=== PATIENT | female | born 1975 | race Caucasian/White ===

== ENCOUNTER → 2017-05-01 11:06 | Outpatient (CLI) | payer OTHER, SELFPAY ==
--- NOTE | 2017-05-01 11:10 | XR_ITS ---
XR hand RT min 3V COMPARISON: None HISTORY: Suspected bone cyst TECHNIQUE: AP lateral and oblique views FINDINGS: The distal radius and ulna appear intact. The carpal bones are normal. The metacarpals and phalanges all appear normal. The soft tissues are normal. IMPRESSION: Negative right hip
--- NOTE | 2017-05-01 11:37 | XR_ITS ---
XR chest 2V INDICATION: No history provided COMPARISON: PA and lateral chest 05/26/2016 FINDINGS: The lung morris are well expanded and appear clear of infiltrate. The cardiomediastinal silhouette and vascularity are normal. The costophrenic angles are clear. The bony thorax is normal. IMPRESSION: Normal chest.
== END ==
PROVIDERS: PCP Emergency Medicine; Visit Provider Orthopaedic Surgery
DX: L72.9 Follicular cyst of the skin and subcutaneous tissue, unspecified (principal); R06.02 Shortness of breath
CPT/HCPCS: 71046; 73130

== ENCOUNTER → 2017-05-04 13:21 | Outpatient (POV) | payer OTHER, SELFPAY | PROVIDERS: Family Provider Physician Assistant; PCP Emergency Medicine; Visit Provider Internal Medicine | DX: Z00.00 Encounter for general adult medical examination without abnormal findings (principal) ==

== ENCOUNTER → 2017-07-05 08:29 | Outpatient (CLI) | payer OTHER, SELFPAY ==
--- NOTE | 2017-07-05 08:31 | MM_ITS ---
MM Dig screening mamm BI w/CAD CAD Screening ORDERING PHYSICIAN : ANDREW Taylor PATIENT AGE: 41 years GENDER: Female COMPARISON: Previous mammograms: April, 2015, December 2013July 2009 utilized INDICATION: Screening mammogram. Female hormones last year. Previous needle biopsy stereotactic biopsy as well as excisional biopsy left breast. Benign results.. Family history. Maternal sister, cousin, aunts & grandmother TECHNIQUE: Standard CC and MLO images were obtained. R2 CAD reviewed. FINDINGS: Dense inhomogeneous breast pattern bilaterally again encountered. The dense inhomogeneous character there is decreased sensitivity mammography and may obscure abnormalities . If any palpable areas arise low threshold for ultrasound be appropriate in this breast given its architecture and appearance. LEFT BREAST:Metallic MicroMark or at the central left breast at the site of previous percutaneous biopsy.. A few grouping of a tiny calcification seen at the deep upper outer quadrant left breast best seen on MLO view but also axillary cc view. These are labeled X.. These are seen on the 2017 exam with only slight progression in interval Suggest 6- 7 month follow-up of these most likely benign calcifications to further evaluate. RIGHT BREAST:No definitive new findings Area of relative focal density at the far deep lateral breast on today's axillary cc view seems to dissipate on other views and most likely a summation shadow.Somewhat similar appearance, dates back to at least 2015, however when patient return in 6 months is suggested repeat axillary cc view and MLO view as well IMPRESSION: . 1. Left Breast: small loose grouping very tiny calcifications at the deep axillary tail.. Barely evident. Favor benign but Very slightly more evident since last year... Would benefit from Follow-up in 6 months to confirm stability and reevaluation 2 Right Breast: no prominent findings.. But note Area of slightly greater density at the deep axillary tail on cc view which appears to be summation shadow on today's study,. Thus would suggest including axillary cc view and MLO right breast when patient returns in 6- 7 months as well 3 Dense inhomogeneous asymmetric breast again observed.. Mammography is decreased sensitivity in breast of this dense character particularly within the areas of denser breast tissueSelf breast examination encouraged If any area palpable arises follow-up ultrasoundwould be useful to compliment mammography particularly in breast of this increased density BI-RADS Category: 3 Benign Finding Short Term Follow-up RECOMMENDED FOLLOW-UP: 6M - 7 MONTH FOLLOW-UP Additional imaging at 6-7 month to included: Left breast: routine MLO and cc view; with magnification spot views cc & 90 degree of tiny calcifications at labeled X Right breast: axillary cc, and standard full MLO view at that 6- 7 month follow-up as well (A letter has been sent to the patient regarding results of the study.)
== END ==
PROVIDERS: Family Provider Physician Assistant; PCP Emergency Medicine; Visit Provider Physician Assistant
DX: Z12.31 Encounter for screening mammogram for malignant neoplasm of breast (principal)
CPT/HCPCS: 77067

== ENCOUNTER → 2017-07-22 15:28 | Outpatient (CLI) | payer OTHER, SELFPAY ==
--- NOTE | 2017-07-22 15:31 | US_ITS ---
US breast LT complete Ordering Physician: Bruce Ovalle MD Patient Age: 41 years: Female HISTORY: ITS.REASON: Abnormal Mammogram Fibrocystic breast disease. Had surgery 2009. TECHNIQUE: Ultrasound survey entire left breast & including axillary survey COMPARISON :Ultrasound left breast 05/07/2015 and recent mammogram. FINDINGS ...... Discussed the images with the aeronautical engineering technologist . 1:00 Palpable area was a 1:00 . At the palpable region there is only a small cyst identified.. No solid nodule. Moderate fibroglandular tissue in this region.. This small cyst at 1:00 measuring merely 5.2 mm transverse X 4.6 mm length x 1.6 mm AP. The moderate fibroglandular tissues are seen otherwise noted throughout this area could contribute to the the palpable fullness as well.. 9:00. 2 cysts at Central breast behind nipple: .Cyst#1 measuring 8.7 mm x 7.7 mm x 5.6 mm .Cyst#2. Measures 8.7 mm x 9.7 mm x 6.8 mm 2:00.... 1 cm cyst central breast IMPRESSION: ...... 1. Fibrocystic left breast again encountered Scattered small cysts throughout left breast as detailed in text 2. The palpable area at 1:00 shows no suspicious findings by ultrasound. No solid nodule. Only a moderate fibroglandular tissue along with a small cyst seen at this 1:00 region 3. Consider follow-up left mammogram and ultrasound in 6months if palpable area should persist . ( If this palpable area should progress then repeat evaluation/and shorter interval follow-up may be appropriate.) CAD. BI-RADS Category: 3 Benign Finding Short Term Follow-up RECOMMENDED FOLLOW-UP: 6M - 6 MONTH FOLLOW-UP (A letter has been sent to the patient regarding results of the study.)
== END ==
PROVIDERS: Family Provider Physician Assistant; PCP Emergency Medicine; Visit Provider Emergency Medicine
DX: R92.8 Other abnormal and inconclusive findings on diagnostic imaging of breast (principal)
CPT/HCPCS: 76641

== ENCOUNTER → 2018-01-17 12:53 | Outpatient (CLI) | payer OTHER, SELFPAY ==
--- NOTE | 2018-01-17 | US_ITS ---
MM Dig mamm BI DX w/CAD, US breast LT complete, US breast RT complete INDICATION: Follow-up abnormal mammogram ORDERING PHYSICIAN: Bruce Ovalle MD PATIENT AGE: 42 years COMPARISON: 07/05/2017, 314 and 17, 05/07/2015, 04/29/2015 TECHNIQUE: Standard images performed along with mag views and spot compression views as well as bilateral breast ultrasound FINDINGS: There is dense fibroglandular tissue which decreases the sensitivity of mammography. Please correlate with physical exam. Right breast: Small cluster of calcifications noted in the medial aspect of the right breast do not appear significantly changed. These have a somewhat smudgy appearance probably benign. Asymmetric density is noted in the deep medial aspect of the right breast appears to partially efface on the spot compression view. This has somewhat similar appearance dating back to 04/29/2015. Scattered asymmetric areas of increased density are present involving both breasts. Asymmetric density is present near on the spot compression view slightly medial to midline seen only on the CC view measuring 10 mm. Benign-appearing nodular densities present in the axilla consistent with lymph nodes. Right breast ultrasound: 4 mm x 5 mm hypoechoic nodule at 12:00 probably due to small cyst. Hypoechoic 8 x 6 mm nodule at 12:00 near the nipple. This does appear to contain some internal echoes and does not appear to represent simple cyst possibly due to asymmetric fibrocystic changes. Hypoechoic area at 3:00 similar to the previous ultrasound of 05/07/1959 probably related to fibroglandular tissue. 5 mm cyst at 1:00. 9 mm complex cyst at 6:00. 7 mm cyst at 9:00. 10 mm cyst complex at 10:00. 5 mm isoechoic nodule containing multiple small cysts at 6:00. Left breast: Dense fibroglandular tissue. Biopsy clip is present in the retroareolar region. Calcifications in the upper aspect of the left breast not significantly changed from 07/05/2017. Probably benign. Small cluster calcifications noted in the retroareolar region which appear benign. Asymmetric density is present in the medial aspect of the left breast. Severe to compress out on the spot compression view. Left breast ultrasound: There are multiple left breast cysts including a 6 mm cyst at 12:00, another 6 mm cyst at 12:00, 6 mm cyst at 1:00, 4 mm cyst at 2:00, complex 1 cm cyst at 2:00, 3 mm cyst at 9:00, 8 mm cyst at 10:00, 6 mm complex cyst in the retroareolar region, no suspicious sonographic nodules evident. IMPRESSION: 1. Probably benign calcifications in the upper outer aspect of the left breast and lower inner aspect of the right breast. 2. New hypoechoic area in the retroareolar region of the right breast possibly due to asymmetric fibroglandular tissue at 8 x 6 mm 12:00 near the nipple 3. Multiple bilateral breast cysts. 4. Dense fibroglandular tissue decrease in the sensitivity of mammography. Suggest follow-up right breast ultrasound and mag views of the calcifications of both breasts in 3-4 months BI-RADS Category: 3 Probably Benign Finding Short Term Follow-up RECOMMENDED FOLLOW-UP: 3M - 3 MONTH FOLLOWUP (A letter has been sent to the patient regarding results of the study.)
== END ==
PROVIDERS: PCP Emergency Medicine; Visit Provider Emergency Medicine
DX: R92.8 Other abnormal and inconclusive findings on diagnostic imaging of breast (principal)
CPT/HCPCS: 76641; 77066

== ENCOUNTER → 2018-04-25 13:41 | Outpatient (CLI) | payer OTHER, SELFPAY ==
--- NOTE | 2018-04-25 13:53 | MM_ITS ---
MM Dig mamm BI DX w/CAD, US breast RT complete Ordering Physician: Bruce Ovalle MD Patient Age: 42 years Female COMPARISON: Previous mammogram studies January 17, 2018, June Previous bilateral ultrasound January 2018, May 2015 INDICATION: Follow-up nodularity & calcifications BILATERAL DIAGNOSTIC MAMMOGRAM with additional spot views TECHNIQUE: MLO & cc & axillary cc view both breast with additional CC and 90 degree magnification spot views bilaterally for calcifications. FINDINGS: : Difficult to evaluate breast due to the Dense nodular character bilaterally. RIGHT BREAST: The overall parenchymal pattern of the right breast appears similar we do see areas of subtle round densities which are compatible with numerous small cyst is seen on subsequent ultrasound. . *There is a small cluster variable microcalcifications at the deep medial right breast-area labeled A. Recommend stereotactic biopsy to further evaluate this area since it shows slight progression with some additional small variable forms today.. This feature is Located at the inferior medial right breast & fairly deep but I believe we should be able to target with stereotactic.. Other small calcifications in the right breast are scattered and compatible with adenosis LEFT BREAST again the dense nodular pattern observed with fairly stable parenchymal pattern. There is a loose grouping of calcifications in the deep upper outer quadrant of the left breast. Labeled X These were seen previously and have not changed significantly since prior study 2018. They've become slightly denser since 2017 but not significantly increased in number and what appears to fairly benign morphology. I suggest a follow-up left mammogram 6-8 months to further evaluate these this area. There is also another area of calcifications which but can be followed. Labeled Y there are some Layering calcifications which may reflect milk of calcium seen in this grouping. Previous biopsy with metallic marker at the central left breast again noted. RIGHT BREAST ULTRASOUND. Including Axillary Survey. Images entire breast was performed including axillary survey of lymph nodes. I see no significant suspicious areas with ultrasound. No new findings of significant concern on ultrasound. Scattered cysts and debris-filled appearing cyst throughout the right breast are again observed:. 12:00. There is a 4.5 mm debris-filled cyst mid zone breast. 12:00 central breast 5.2 cm cyst. Deep breast. 12:00 deep breast adjacent chest wall. Near 1 cm length or debris-filled cyst. There is through transmission more so today than previous study and is not changed significantly size when measured from similar points; thus follow-up adequate. 1:00. There is 8 mm small cystic behind nipple central breast. 3:00. Slightly debris-filled cyst. 6.5 mm deep to the Nipple [. 6:00 collection of cyst overall this area spans a 9 mm x 6 mm.. Deep to the nipple Some of these cyst debris-filled. On this would benefit from ongoing follow-up is similar to previous studies only slightly more apparent. 6:00 deep breast towards chest wall collection of cyst of these benign 0.1 mm. Stable. Not of concern 7:00. Flexion assisted breast spanning just over 1 cm 9:00. Debris-filled cyst 6.2 mm length 10:00 7 mm debris-filled cyst. Period 11:00 is a probable debris-filled cyst or chest wall 6.3 mm length. Scattered small axillary lymph nodes, benign appearance. No suspicious findings. The largest node 1.55 cm in length. IMPRESSION 1. RIGHT BREAST. DIAGNOSTIC MAMMOGRAM Small cluster of microcalcifications deep medial inferior which has shown subtle progression with slight variable forms. Warrants Stereotactic Biop
== END ==
PROVIDERS: PCP Emergency Medicine; Visit Provider Emergency Medicine
DX: R92.8 Other abnormal and inconclusive findings on diagnostic imaging of breast (principal)
CPT/HCPCS: 76641; 77066

== ENCOUNTER → 2018-04-27 11:45 | Outpatient (CLI) | payer OTHER, SELFPAY ==
--- NOTE | 2018-04-27 12:24 | MM_ITS ---
MM stereotactic loc RT, MM clip placement RT STEREOTACTIC BIOPSY RIGHT BREAST with CLIP PLACEMENT SPECIMEN RADIOGRAPH DIAGNOSTIC RIGHT MAMMOGRAM POST BIOPSY HISTORY: Cluster Breast calcifications medial inferior right breast, slightly more evident . ======= PROCEDURE: STEREOTACTIC VACUUM-ASSISTED CORE BX, W/ CLIP PLACEMENT: Prior t mammogram showed showedMicrocalcifications at inferior medial right breast position .. The patient declined premedications. The patient was placed on the stereotactic table and cluster of calcifications was localized in the most appropriate projection. The breast was prepped in the routine manner, with sterile prep and the overlying skin anesthetized. A very small and 2 -3 mm skin incision was performed and the 9 gauge Eviva vacuum-assisted core biopsy needle was advanced to the region of the calcification. Pre- and post fire images were obtained. After adequate positioning relative to the calcifications was ensured, multiple biopsies were obtained in the region of the calcifications specifically. The multiple core biopsies obtained were sent for specimen mammography. After the cluster calcifications were indeed identified on the specimen mammogram, the procedure was terminated. A tiny titanium nonferromagnetic MicroMark was positioned through the mammotome needle into the biopsy site . The patient tolerated the procedure well without complications.. Minimal discomfort but she received no premedication. Specimen was sent for pathologic analysis.. Routine follow-up phone call to patient is to be performed as well. IMPRESSION 1. Successful stereotactic vacuum-assisted core biopsy, with adequate sampling & removal) of the small area of targeted clustered calcifications. The calcifications are evident on the subsequent specimen radiograph Successful stereotactic vacuum-assisted core biopsy of these breast calcifications. 2. Successful placement of a titanium metal MicroMark. 3. No evidence complications. SPECIMEN RADIOGRAPH: The mammographically evident calcifications from the prior study are currently evident within the Marv dish and within the specimens obtained during mammotome procedure. This is considered an adequate specimen and the procedure was terminated. IMPRESSION:Successful removal of described breast calcifications.Successful stereotactic biopsy RIGHT BREAST DIAGNOSTIC MAMMOGRAM - post biopsy Moderately dense breast.. The targeted clustered grouping small calcification as been removed. A small MicroMark clip was inserted into the region of the calcifications. There is evidence of soft tissue changes in the region of the biopsy was soft tissue gas. No significant hematoma, and only minimal edema. Moderate size biopsy defect. With metallic marker IMPRESSION: 1. Successful stereotactic biopsy with clip placement 2. Adequate placement of the MicroMark clip postbiopsy. . Postbiopsy changes evident on postbiopsy mammogram. PATHOLOGY report:. Benign findings. . Benign proliferative fibrocystic changes with benign stromal microcalcifications.
== END ==
PROVIDERS: PCP Emergency Medicine; Visit Provider Emergency Medicine
DX: R92.8 Other abnormal and inconclusive findings on diagnostic imaging of breast (principal)
CPT/HCPCS: 19081; 77065

== ENCOUNTER → 2018-05-11 09:01 | Outpatient (CLI) | payer OTHER, SELFPAY ==
[2018-05-11 09:22] LABS: Basophils % 0.6 % (0.1-2.0); Eosinophils # 0.1 K/mm3 (0.0-0.4); Eosinophils % 1.9 % (0.1-12.0); Hematocrit 41.8 % (37.0-47.0); Hemoglobin 14.1 g/dL (12.2-16.2); Lymphocytes # 1.8 K/mm3 (0.7-4.5); Lymphocytes % 34.6 % (10-50); Mean Corpuscular HGB Conc 33.7 g/dL (31.8-35.4); Mean Corpuscular Hemoglobin 31.1 pg (27.0-31.2); Mean Corpuscular Volume 92.1 fl (81-99); Mean Platelet Volume 7.4 fl (7.4-10.4); Monocytes # 0.2 K/mm3 (0.1-1.0); Monocytes % 3.9 % (1.7-9.3); Neutrophils # 3.1 K/mm3 (1.8-7.8); Platelet Count 328 K/mm3 (142-424); Red Blood Count 4.54 M/mm3 (4.20-5.40); Red Cell Distribution Width 12.6 % (11.5-17.5); White Blood Count 5.2 K/mm3 (4.8-10.8)
[2018-05-11 09:24] LABS: Anion Gap 14.5 mEq/L (5-15); Blood Urea Nitrogen 11 mg/dL (7-18); Calcium 9.3 mg/dL (8.5-10.1); Carbon Dioxide 27 mmol/L (21.0-32.0); Chloride 103 mmol/L (98-107); Creatinine,Serum 0.98 mg/dL (0.55-1.02); Estimated Glomerular Filt Rate 62 ml/min (>60); GFR (African American) 75 ML/MIN (>60); Glucose 85 mg/dL (74-106); Potassium 3.5 mmoL/L (3.5-5.1); Sodium 141 mmol/L (136-145)
[2018-05-11 11:34] LABS: Activated Partial Thrombo Time 24.5 seconds (23.6-34.0); INR 0.95 (0.9-1.1); Prothrombin Time 9.8 seconds (9.4-11.8)
== END ==
PROVIDERS: Visit Provider Specialist
DX: Z01.812 Encounter for preprocedural laboratory examination (principal); I10 Essential (primary) hypertension
CPT/HCPCS: 80048; 85025; 85610; 85730

== ENCOUNTER → 2018-10-26 18:16 | Outpatient (CLI) | payer OTHER, SELFPAY | PROVIDERS: Visit Provider Physician Assistant | DX: N23 Unspecified renal colic (principal) | CPT/HCPCS: 87086; 87088; 87186 ==

== ENCOUNTER → 2018-11-14 13:52 | Outpatient (CLI) | payer OTHER, SELFPAY ==
--- NOTE | 2018-11-14 13:55 | MM_ITS ---
PROCEDURE: MM DIG MAMM BI DX W/CAD Patient Age:43Y CLINICAL INDICATION: 6 mth f/u stereotactic biopsy of right is six-month follow-up for calcifications. . Fibrocystic breast disease with bilateral previous biopsies. Percutaneous COMPARISON: DIG MAMM-DX UNILATERAL-LT from 06/27/2013 [facility] DIG MAMM-SCREEN YARA from 12/29/2013 [facility] DIG MAMM-SCREEN YARA from 04/29/2015 [facility] DIG MAMM-DX YARA W ADD VIEWS from 05/07/2015 BL US BREAST-LT COMPLETE W/AXILLA from 05/07/2015 [facility] DIG MAMM-DX UNI-LT from 05/15/2015 [facility] DIG MAMM-SCREEN YARA W/CAD from 05/19/2016 [facility] MM Dig screening mamm BI w/CAD from 07/05/2017 BREASTLT US breast LT complete from 01/17/2018 [facility] MM Dig mamm BI DX w/CAD from 01/17/2018 BREASTRT US breast RT complete from 01/17/2018 BREASTRT US breast RT complete from 04/25/2018 [facility] MM Dig mamm BI DX w/CAD from 04/25/2018 STRT MM stereotactic loc RT from 04/27/2018 CLIPRT MM clip placement RT from 04/27/2018 US BREAST RT COMPLETE from 11/14/2018 US BREAST LT COMPLETE from 11/14/2018 TECHNIQUE: CC and MLO images were obtained bilateral. R2 CAD reviewed.. Additional magnification views calcifications superior left breast included FINDINGS: BILATERAL DIAGNOSTIC MAMMOGRAM, including spot views left breast Dense breast pattern bilaterally decrease sensitivity in mammography Right mammogram.: Similar stable heterogeneous architecture and appearance. With no new areas of significant concern . Percutaneous biopsy marker at the medial inferior right breast again noted. Left mammogram:: We again see 3 small groupings of tiny calcifications upper-outer quadrant left breast which overall fairly stable. The area labeled X. is most notable-in the deep axillary tail left breast and appears similar since 2017 and 2007 left ML view. No significant appearing change. Given its deep location and previous benign biopsies of the follow-up would be adequate. Area labeled Y: With the small linear possible milk of calcium type calcifications again noted. This area reasonably stable as well. Area labeled Z: Between these areas on today's 90 degree mL view with scattered extremely tiny faint calcifications. But most likely reflect benign adenosis and can be followed There is a small metal marker clip the central breast from previous percutaneous biopsy. BILATERAL BREAST ULTRASOUND including axillary survey RIGHT BREAST ULTRASOUND: Scattered cysts throughout the right breast are again observed. Most notable include: 12 o'clock 5 mm debris-filled cyst. Deeper 12 o'clock central breast 9 mm cyst 2 o'clock. Septated 5.6mm cyst. 5 o'clock. Septated small cyst 6 o'clock. A more complex of collection of small apocrine cyst spanning 8.6 mm vs a small benign intramammary lymph node. Numerous other less than 6 mm cyst elsewhere. 11 o'clock. 9.5 mm cyst septated. Benign appearing axillary node. . no discrete suspicious solid nodules or masses LEFT BREAST ULTRASOUND: Scattered cyst throughout left breast. Most notable: 11 o'clock 1.2 cm cyst benign-appearing 3 o'clock: 1 cm benign septated cyst . Scattered other small cyst measuring less than 6 mm seen elsewhere scattered throughout the breast Axilla.. Benign axillary lymph nodes with thin cortex similar to previous studies IMPRESSION: BILATERAL MAMMOGRAM: Dense breast bilaterally significant decreased sensitivity but no unique discrete new areas of concern Left mammogram: Small area/groupings calcification upper outer quadrant of the left breast have not changed appreciably since studies dating back to 2017, but suggest follow-up 6-8 months.. Right mammogram: No significant new areas of concern. Overall stable dense appearance. BILATERAL BREAST
== END ==
PROVIDERS: PCP Emergency Medicine; Visit Provider Emergency Medicine
DX: R92.8 Other abnormal and inconclusive findings on diagnostic imaging of breast (principal)
CPT/HCPCS: 76641; 77066

== ENCOUNTER → 2018-12-09 11:05 | Outpatient (CLI) | payer OTHER, SELFPAY ==
--- NOTE | 2018-12-09 11:17 | MR_ITS ---
PROCEDURE: MR HEAD/BRAIN WO CON CLINICAL INDICATION: vision loss COMPARISON: No exams were available for comparison TECHNIQUE: Routine multi-echo and multiplanar images. This included diffusion images. FINDINGS: There are no areas of restricted diffusion. There is no mass, acute hemorrhage or extra axial fluid collection. Ventricles, sulci, cortical areas and brainstem structures are normal. The visual pathway structures are unremarkable. There are a few punctate round foci of slight increased FLAIR signal in the subcortical frontal lobe areas bilaterally and a few also in the posterior parietal areas. Visualized vessels are patent and the area of the foramen magnum is normal. Paranasal sinuses and mastoid air cells are clear. IMPRESSION: No acute process and no acute infarctions. White matter findings are very mild and could be from mild chronic small vessel ischemic disease or sequela of migraine headaches. Dictated by: Asim Iqbal 12/09/2018 13:31 Electronically signed by Asim Iqbal in [place] 12/09/2018 13:31
== END ==
PROVIDERS: PCP Emergency Medicine; Visit Provider Emergency Medicine
DX: H53.122 Transient visual loss, left eye (principal); H04.123 Dry eye syndrome of bilateral lacrimal glands; R68.2 Dry mouth, unspecified; R20.0 Anesthesia of skin
CPT/HCPCS: 70551

== ENCOUNTER → 2019-05-01 11:25 | Outpatient (CLI) | payer OTHER, SELFPAY ==
--- NOTE | 2019-05-01 11:30 | US_ITS ---
PROCEDURE: US ABDOMEN COMPLETE CLINICAL INDICATION: pain, n/v COMPARISON: No exams were available for comparison FINDINGS: PANCREAS: Unremarkable. No obvious mass or abnormal fluid collection. No ductal dilatation LIVER: No focal liver lesions demonstrated. Homogeneous echogenicity. No intrahepatic biliary ductal dilatation evident. There is appropriate direction of blood flow within a non dilated portal vein RIGHT KIDNEY: Unremarkable. Normal size and echogenicity. No hydronephrosis LEFT KIDNEY: Unremarkable. Normal size and echogenicity. No hydronephrosis GALLBLADDER: No gallstones, gallbladder wall thickening, pericholecystic fluid, or biliary dilatation. AORTA: No evidence of aneurysmal dilatation. SPLEEN: Unremarkable. Normal size and echogenicity ASCITES: None demonstrated. IMPRESSION: Negative abdominal ultrasound Dictated by: Juan Luis Maldonado MD 05/01/2019 18:30 Electronically signed by Juan Luis Maldonado MD in [place] 05/01/2019 18:30
== END ==
PROVIDERS: PCP Emergency Medicine; Visit Provider Emergency Medicine
DX: R10.9 Unspecified abdominal pain (principal)
CPT/HCPCS: 76700

== ENCOUNTER → 2019-05-15 18:09 | Outpatient (CLI) | payer OTHER, SELFPAY ==
[2019-05-15 18:39] LABS: Adenovirus,PCR Not Detected (NotDetected); Bordetella Pertussis Not Detected (NotDetected); Chlamydophila Pneumoniae, PCR Not Detected (NotDetected); Coronavirus 229E Not Detected (NotDetected); Coronavirus NL63 Not Detected (NotDetected); Coronavirus OC43 Not Detected (NotDetected); Coronovirus HKU1,PCR Not Detected (NotDetected); Human Metapneumovirus Not Detected (NotDetected); Influenza A, PCR Not Detected (NotDetected); Influenza AH1, 2009 Not Detected (NotDetected); Influenza AH1, PCR Not Detected (NotDetected); Influenza AH3,PCR Not Detected (NotDetected); Influenza B, PCR Not Detected (NotDetected); Mycoplasma Pneumoniae, PCR Not Detected (NotDetected); Parainfluenza 1, PCR Not Detected (NotDetected); Parainfluenza 2, PCR Not Detected (NotDetected); Parainfluenza 3, PCR Not Detected (NotDetected); Parainfluenza 4, PCR Not Detected (NotDetected); Respiratory Syncytial Virus Not Detected (NotDetected); Rhinovirus/Enterovirus Not Detected (NotDetected)
== END ==
PROVIDERS: PCP Emergency Medicine; Visit Provider Emergency Medicine
DX: R50.9 Fever, unspecified (principal)
CPT/HCPCS: 87486; 87581; 87633; 87798

== ENCOUNTER → 2019-06-20 13:31 | Outpatient (CLI) | payer OTHER, SELFPAY ==
--- NOTE | 2019-06-20 13:35 | US_ITS ---
PROCEDURE: MM DIG MAMM BI DX W/CAD Digital Breast Tomosynthesis Included CLINICAL INDICATION: 6 mth f/u Follow-up abnormal mammogram, COMPARISON: [facility] DIG MAMM-DX UNI-LT from 05/15/2015 [facility] DIG MAMM-SCREEN YARA W/CAD from 05/19/2016 [facility] MM Dig screening mamm BI w/CAD from 07/05/2017 [facility] MM Dig mamm BI DX w/CAD from 01/17/2018 CLIPRT MM clip placement RT from 04/27/2018 STRT MM stereotactic loc RT from 04/27/2018 US BREAST LT COMPLETE from 11/14/2018 MM DIG MAMM BI DX W/CAD from 11/14/2018 US BREAST RT COMPLETE from 11/14/2018 US BREAST RT COMPLETE from 06/20/2019 US BREAST LT COMPLETE from 06/20/2019 TECHNIQUE: Standard images along with bilateral 3D tomosynthesis and bilateral breast ultrasound FINDINGS: Average fibroglandular tissue. Scattered benign-appearing calcifications and benign-appearing nodular densities are once again noted. Biopsy clip is present along the lower inner aspect of the right breast. A stable cluster of calcifications noted in the upper aspect of the left breast. A clip is also present in the medial aspect of the left breast. Right breast ultrasound: Hypoechoic nodule at 12 o'clock at 5 mm near the nipple unchanged. 5 mm cyst at 12 o'clock near the nipple. 7 mm hypoechoic nodule deep in the right breast at 12 o'clock near the nipple unchanged. 6 mm cyst at 2 o'clock. Complicated cyst at 5 o'clock at 5 mm, complicated lobular cyst at 6 o'clock at 7 mm, hypoechoic nodule at 8 o'clock at 7 mm unchanged. 5 mm cyst at 9 o'clock, bilobular 9 mm cyst at 11 o'clock. Septated 8 mm cyst at 11 o'clock. No new nodules. No suspicious lesions. Left breast ultrasound: 8 mm cyst at 12 o'clock, 10 mm complicated cyst at 12 o'clock, 8 mm complicated cyst at 1 o'clock, 7 mm complicated cyst at 3 o'clock, 9 mm complicated cyst at 3 o'clock, 5 mm cyst at 3 o'clock, ductal ectasia, 6 mm complicated cyst at 9 o'clock, 13 and 10 mm cyst at 11 o'clock. These may actually represent a bilobed single cyst. No suspicious lesions IMPRESSION: Stable appearance of the breast. No convincing evidence of malignancy. BI-RAD Category: 2 Benign Finding(s) FOLLOW-UP: 1YR 1 Year Follow-up (A letter has been sent to the patient regarding results of the study.) Dictated by: Juan Luis Maldonado MD 06/26/2019 10:20 Electronically signed by Juan Luis Maldonado MD in [place] 06/26/2019 10:20
== END ==
PROVIDERS: PCP Emergency Medicine; Visit Provider Emergency Medicine
DX: R92.8 Other abnormal and inconclusive findings on diagnostic imaging of breast (principal)
CPT/HCPCS: 76641; 77062; 77066; G0279

== ENCOUNTER → 2019-08-04 16:59 | Outpatient (CLI) | payer OTHER, SELFPAY ==
[2019-08-04 17:55] LABS: Coronavirus 19 IgG Antibody Negative (Negative); Coronavirus 19 IgM Antibody Negative (Negative)
== END ==
PROVIDERS: Visit Provider Emergency Medicine
DX: Z03.818 Encounter for observation for suspected exposure to other biological agents ruled out (principal)
CPT/HCPCS: 86328

== ENCOUNTER → 2019-09-05 10:41 | Outpatient (POV) | payer OTHER, SELFPAY | PROVIDERS: PCP Emergency Medicine; Visit Provider Physician Assistant | DX: Z00.00 Encounter for general adult medical examination without abnormal findings (principal) ==

== ENCOUNTER → 2019-10-16 20:12 | Outpatient (CLI) | payer OTHER, SELFPAY | PROVIDERS: PCP Emergency Medicine; Visit Provider Nurse Practitioner Family | DX: Z03.818 Encounter for observation for suspected exposure to other biological agents ruled out (principal) | CPT/HCPCS: U0003 ==

== ENCOUNTER → 2019-10-30 11:12 | Outpatient (CLI) | payer OTHER, SELFPAY ==
[2019-10-31 16:12] LABS: Covid-19 Nasal PCR Sendout Lex NOT DETECTED
== END ==
PROVIDERS: Visit Provider Internal Medicine Adolescent Medicine
DX: Z03.818 Encounter for observation for suspected exposure to other biological agents ruled out (principal)
CPT/HCPCS: U0004

== ENCOUNTER → 2019-12-29 18:01 | Outpatient (CLI) | payer OTHER, SELFPAY | PROVIDERS: PCP Physician Assistant; Visit Provider Physician Assistant | DX: Z03.818 Encounter for observation for suspected exposure to other biological agents ruled out (principal); R05 Cough; R51.9 Headache, unspecified | CPT/HCPCS: U0003 ==

== ENCOUNTER → 2020-01-28 12:22 | Outpatient (CLI) | payer OTHER, SELFPAY ==
[2020-01-28 12:28] LABS: Adenovirus,PCR Not Detected (NotDetected); Bordetella Pertussis Not Detected (NotDetected); Chlamydophila Pneumoniae, PCR Not Detected (NotDetected); Coronavirus 19, PCR Not Detected (NotDetected); Coronavirus 229E Not Detected (NotDetected); Coronavirus NL63 Not Detected (NotDetected); Coronavirus OC43 Not Detected (NotDetected); Coronovirus HKU1,PCR Not Detected (NotDetected); Human Metapneumovirus Not Detected (NotDetected); Influenza A, PCR Not Detected (NotDetected); Influenza AH1, 2009 Not Detected (NotDetected); Influenza AH1, PCR Not Detected (NotDetected); Influenza AH3,PCR Not Detected (NotDetected); Influenza B, PCR Not Detected (NotDetected); Mycoplasma Pneumoniae, PCR Not Detected (NotDetected); Parainfluenza 1, PCR Not Detected (NotDetected); Parainfluenza 2, PCR Not Detected (NotDetected); Parainfluenza 3, PCR Not Detected (NotDetected); Parainfluenza 4, PCR Not Detected (NotDetected); Respiratory Syncytial Virus Not Detected (NotDetected); Rhinovirus/Enterovirus Not Detected (NotDetected)
== END ==
LOC: LAB 12:25 → LAB.DROPOF 12:26
PROVIDERS: Visit Provider Nurse Practitioner Family
DX: Z03.818 Encounter for observation for suspected exposure to other biological agents ruled out (principal)
CPT/HCPCS: 87581; 87633; 87798; U0003

== ENCOUNTER → 2020-04-01 13:43 | Outpatient (CLI) | payer OTHER, SELFPAY ==
[2020-04-01 14:18] LABS: Adenovirus,PCR Not Detected (NotDetected); Bordetella Pertussis Not Detected (NotDetected); Chlamydophila Pneumoniae, PCR Not Detected (NotDetected); Coronavirus 19, PCR Not Detected (NotDetected); Coronavirus 229E Not Detected (NotDetected); Coronavirus NL63 Not Detected (NotDetected); Coronavirus OC43 Not Detected (NotDetected); Coronovirus HKU1,PCR Not Detected (NotDetected); Human Metapneumovirus Not Detected (NotDetected); Influenza A, PCR Not Detected (NotDetected); Influenza AH1, 2009 Not Detected (NotDetected); Influenza AH1, PCR Not Detected (NotDetected); Influenza AH3,PCR Not Detected (NotDetected); Influenza B, PCR Not Detected (NotDetected); Mycoplasma Pneumoniae, PCR Not Detected (NotDetected); Parainfluenza 1, PCR Not Detected (NotDetected); Parainfluenza 2, PCR Not Detected (NotDetected); Parainfluenza 3, PCR Not Detected (NotDetected); Parainfluenza 4, PCR Not Detected (NotDetected); Respiratory Syncytial Virus Not Detected (NotDetected); Rhinovirus/Enterovirus Not Detected (NotDetected)
== END ==
PROVIDERS: PCP Emergency Medicine; Visit Provider Family Medicine
DX: Z20.822 Contact with and (suspected) exposure to COVID-19 (principal)
CPT/HCPCS: 87581; 87633; 87798

== ENCOUNTER → 2020-07-01 11:21 | Outpatient (CLI) | payer OTHER, SELFPAY ==
[2020-07-01 11:35] LABS: Basophils # 0.1 K/mm3 (0-0.2); Basophils % 1.2 % (0.1-2.0); Eosinophils # 0.1 K/mm3 (0.0-0.4); Eosinophils % 1.9 % (0.1-12.0); Hematocrit 42.2 % (37.0-47.0); Hemoglobin 13.9 g/dL (12.2-16.2); Lymphocytes # 1.9 K/mm3 (0.7-4.5); Lymphocytes % 40.4 % (10-50); Mean Corpuscular HGB Conc 32.9 g/dL (31.8-35.4); Mean Corpuscular Hemoglobin 30.2 pg (27.0-31.2); Mean Corpuscular Volume 91.8 fl (81-99); Mean Platelet Volume 7.9 fl (7.4-10.4); Monocytes # 0.2 K/mm3 (0.1-1.0); Monocytes % 4.7 % (1.7-9.3); Neutrophils # 2.5 K/mm3 (1.8-7.8); Neutrophils % 51.8 % (37.0-80.0); Platelet Count 309 K/mm3 (142-424); Red Cell Distribution Width 12.7 % (11.5-17.5); White Blood Count 4.8 K/mm3 (4.8-10.8)
[2020-07-01 11:39] LABS: Chloride 104 mmol/L (98-107); Potassium 3.9 mmoL/L (3.5-5.1); Sodium 139 mmol/L (136-145)
[2020-07-01 11:41] LABS: Blood Urea Nitrogen 11 mg/dl (7-17); Estimated Glomerular Filt Rate 67 ml/min (>60); GFR (African American) 82 ML/MIN (>60)
[2020-07-01 11:42] LABS: Alanine Aminotransferase 14 U/L (12-78); Albumin Level 4.8 g/dl (3.5-5.0); Albumin/Globulin Ratio 1.6 (1.1-1.8); Alkaline Phosphatase 58 U/L (38-126); Anion Gap 12.9 mEq/L (5-15); Aspartate Amino Transferase 25 U/L (14-36); Bilirubin,Total 0.7 mg/dl (0.2-1.3); Carbon Dioxide 26 mmol/L (22.0-30.0); Cholesterol 203 mg/dl (140-200); Total Protein,Serum 7.8 g/dl (6.3-8.2); Triglycerides 68 mg/dl (30-150); VLDL Cholesterol 14 mg/dL (0-40)
[2020-07-01 11:43] LABS: Calcium 9.8 mg/dl (8.4-10.2); Chol/HDL Ratio 3.3 (1-3.5); Glucose 94 mg/dl (74-100); HDL Cholesterol 62 mg/dl (40-60)
[2020-07-01 11:54] LABS: Direct LDL Cholesterol 104.89 mg/dL (100-129)
[2020-07-01 12:13] LABS: Thyroid Stimulating Hormone 1.93 uIU/mL (0.465-4.68)
[2020-07-01 16:41] LABS: Hemoglobin A1C 5.2 % (4.0-6.0)
== END ==
PROVIDERS: Visit Provider Family Medicine
DX: Z00.00 Encounter for general adult medical examination without abnormal findings (principal); R73.09 Other abnormal glucose
CPT/HCPCS: 80053; 80061; 83036; 84436; 84443; 85025

== ENCOUNTER → 2020-07-08 13:31 | Outpatient (CLI) | payer OTHER, SELFPAY ==
--- NOTE | 2020-07-08 13:37 | US_ITS ---
PROCEDURE: MM DIG MAMM BI DX W/CAD Digital Breast Tomosynthesis Included CLINICAL INDICATION: screening COMPARISON: MG CLIPRT MM clip placement RT from 04/27/2018 MG,US STRT MM stereotactic loc RT from 04/27/2018 MG MM DIG MAMM BI DX W/CAD from 11/14/2018 US US BREAST LT COMPLETE from 11/14/2018 US US BREAST RT COMPLETE from 06/20/2019 MG MM DIG MAMM BI DX W/CAD from 06/20/2019 US US BREAST LT COMPLETE from 06/20/2019 US US BREAST LT COMPLETE from 07/08/2020 US US BREAST RT COMPLETE from 07/08/2020 TECHNIQUE: Standard CC and MLO images and 3D Tomosynthesis was obtained. R2 CAD reviewed. FINDINGS: Dense fibroglandular tissue noted. Right breast: Nodular density noted in the inferior deep right breast on the MLO view. Spot compression view of this area suggest at this region compresses out as fibroglandular tissue. Probably not significantly changed. Asymmetric density noted in the medial aspect of the right breast on the CC view containing a small focus of calcification. This is not significantly changed. A biopsy marker is present at this region just medially. Numerous asymmetric areas are present and may correspond to the numerous cysts noted on ultrasound. No malignant appearing mass or malignant-appearing microcalcification. Right breast ultrasound: There are numerous hypoechoic nodules as previously described suggesting cyst this or complicated cyst. Previously there was a complicated hypoechoic nodule at 5 o'clock which is not duplicated on today's exam. A complicated cyst is present at 8 o'clock probably unchanged. Hypoechoic nodule outer right breast at 10 o'clock measuring 6 mm probably corresponds to the previously described 11 mm outer breast nodule. There may be some low level echoes however, this may be technical in nature. There is enhanced through transmission of sound. Small nodes are present in the right axilla. Left breast: There are stable microcalcifications in the mid and upper aspect of the left breast there well-circumscribed benign-appearing nodule is present in the medial aspect of the left breast 2 cm deep and nearly 2 cm lateral to the nipple. There is an additional 6 mm well-circumscribed nodule lateral to the nipple. No malignant appearing mass or malignant-appearing microcalcification. Left breast ultrasound: There is a 2 cm benign-appearing cyst at the 12 o'clock region. 12 mm cyst is present at 1 o'clock. Cluster cyst noted at 1 o'clock. 6 mm cyst at 3 o'clock. 4 mm cyst at 7 o'clock. 7 mm cyst at 8 o'clock. 5 mm complicated cyst at 9 o'clock. 2 cm and a 9 mm cyst at 11 o'clock which may correspond to the mammographic abnormality. No suspicious sonographic abnormalities. IMPRESSION: BI-RAD Category: 2 Benign Finding(s) FOLLOW-UP: 1YR 1 Year Follow-up (A letter has been sent to the patient regarding results of the study.) Dictated by: Juan Luis Maldonado MD 07/12/2020 18:24 Juan Luis Maldonado MD in [place] 07/12/2020 18:24
== END ==
PROVIDERS: PCP Emergency Medicine; Visit Provider Emergency Medicine
DX: R92.8 Other abnormal and inconclusive findings on diagnostic imaging of breast (principal)
CPT/HCPCS: 76641; 77062; 77063; 77066; 77067; G0279

== ENCOUNTER → 2020-09-09 09:30 | Outpatient (CLI) | payer OTHER, SELFPAY ==
[2020-09-09 10:31] LABS: Adenovirus,PCR Not Detected (NotDetected); Bordetella Pertussis Not Detected (NotDetected); Chlamydophila Pneumoniae, PCR Not Detected (NotDetected); Coronavirus 19, PCR Not Detected (NotDetected); Coronavirus 229E Not Detected (NotDetected); Coronavirus NL63 Not Detected (NotDetected); Coronavirus OC43 Not Detected (NotDetected); Coronovirus HKU1,PCR Not Detected (NotDetected); Human Metapneumovirus Not Detected (NotDetected); Influenza A, PCR Not Detected (NotDetected); Influenza AH1, 2009 Not Detected (NotDetected); Influenza AH1, PCR Not Detected (NotDetected); Influenza AH3,PCR Not Detected (NotDetected); Influenza B, PCR Not Detected (NotDetected); Mycoplasma Pneumoniae, PCR Not Detected (NotDetected); Parainfluenza 1, PCR Not Detected (NotDetected); Parainfluenza 2, PCR Not Detected (NotDetected); Parainfluenza 3, PCR Not Detected (NotDetected); Parainfluenza 4, PCR Not Detected (NotDetected); Respiratory Syncytial Virus Not Detected (NotDetected)
[2020-09-09 12:00] LABS: Rhinovirus/Enterovirus Detected (NotDetected)
== END ==
PROVIDERS: PCP Emergency Medicine; Visit Provider Emergency Medicine
DX: Z20.822 Contact with and (suspected) exposure to COVID-19 (principal); B97.19 Other enterovirus as the cause of diseases classified elsewhere
CPT/HCPCS: 87581; 87633; 87798

== ENCOUNTER → 2020-09-21 11:13 | Outpatient (CLI) | payer OTHER, SELFPAY ==
[2020-09-21 11:36] LABS: Chloride 104 mmol/L (98-107); Potassium 4.5 mmoL/L (3.5-5.1); Sodium 140 mmol/L (136-145)
[2020-09-21 11:39] LABS: Blood Urea Nitrogen 7 mg/dl (7-17); Estimated Glomerular Filt Rate 67 ml/min (>60); GFR (African American) 82 ML/MIN (>60)
[2020-09-21 11:40] LABS: Anion Gap 12.5 mEq/L (5-15); Calcium 9.5 mg/dl (8.4-10.2); Carbon Dioxide 28 mmol/L (22.0-30.0); Glucose 84 mg/dl (74-100)
[2020-09-21 12:34] LABS: Hemoglobin A1C 5.2 % (4.0-6.0)
[2020-09-23 12:08] LABS: Insulin Level Total 3.7 uIU/mL (2.6-24.9)
== END ==
PROVIDERS: Visit Provider Family Medicine
DX: N95.1 Menopausal and female climacteric states (principal)
CPT/HCPCS: 80048; 83036; 83525

== ENCOUNTER → 2020-09-25 07:59 | Outpatient (CLI) | payer OTHER, SELFPAY ==
--- NOTE | 2020-09-25 07:59 | US_ITS ---
PROCEDURE: US ABDOMEN LIMITED CLINICAL INDICATION: attn pancreas Diabetic, intermittent nausea COMPARISON: US US ABDOMEN COMPLETE from 05/01/2019 FINDINGS: PANCREAS: Unremarkable. No obvious mass or abnormal fluid collection. No ductal dilatation LIVER: No focal liver lesions demonstrated. Homogeneous echogenicity. No intrahepatic biliary ductal dilatation evident. There is appropriate direction of blood flow within a non dilated portal vein RIGHT KIDNEY: Unremarkable. The right kidney measures 8.7 x 3.9 by 6.2 cm and appears sonographically normal. GALLBLADDER: No gallstones, gallbladder wall thickening, pericholecystic fluid, or biliary dilatation. There is a trace amount of biliary sludge. IMPRESSION: Normal appearing pancreas, trace amount of biliary sludge and otherwise unremarkable study Dictated by: Dr. Zenon Montiel MD 09/25/2020 10:40 Dr. Zenon Montiel MD in [facility] 09/25/2020 10:40
== END ==
PROVIDERS: PCP Emergency Medicine; Visit Provider Family Medicine
DX: R10.9 Unspecified abdominal pain (principal)
CPT/HCPCS: 76705

== ENCOUNTER → 2020-10-23 18:17 | Outpatient (CLI) | payer OTHER, SELFPAY ==
[2020-10-23 19:26] LABS: Coronavirus 19, PCR Not Detected (NotDetected); Influenza A, PCR Not Detected (NotDetected); Influenza B, PCR Not Detected (NotDetected)
== END ==
PROVIDERS: PCP Physician Assistant; Visit Provider Physician Assistant
DX: Z20.822 Contact with and (suspected) exposure to COVID-19 (principal)
CPT/HCPCS: U0003

== ENCOUNTER → 2020-10-25 17:49 | Outpatient (CLI) | payer OTHER, SELFPAY ==
[2020-10-25 19:36] LABS: Coronavirus 19, PCR Not Detected (NotDetected); Influenza A, PCR Not Detected (NotDetected); Influenza B, PCR Not Detected (NotDetected)
== END ==
PROVIDERS: PCP Emergency Medicine; Visit Provider Emergency Medicine
DX: Z20.822 Contact with and (suspected) exposure to COVID-19 (principal)
CPT/HCPCS: U0003

== ENCOUNTER → 2020-10-27 22:24 | Outpatient (CLI) | payer OTHER, SELFPAY ==
[2020-10-27 22:34] LABS: Influenza A, PCR Not Detected (NotDetected); Influenza B, PCR Not Detected (NotDetected)
[2020-10-27 22:59] LABS: Coronavirus 19, PCR Detected (NotDetected)
== END ==
PROVIDERS: PCP Emergency Medicine; Visit Provider Emergency Medicine
DX: U07.1 COVID-19 (principal)
CPT/HCPCS: U0003

== ENCOUNTER → 2020-12-11 07:28 | Outpatient (CLI) | payer OTHER, SELFPAY ==
[2020-12-11 08:17] LABS: Glucose,Fasting 95 mg/dl (74-100)
[2020-12-11 17:09] LABS: Glucose 1 Hour 63 mg/dL (74-100)
[2020-12-11 17:10] LABS: Glucose 2 Hour 91 mg/dL (74-100); Glucose 3 Hour 41 mg/dL (74-100)
[2020-12-11 20:06] LABS: Coronavirus 19 IgG Antibody Positive (Negative); Coronavirus 19 IgM Antibody Negative (Negative)
[2020-12-11 20:28] LABS: Hemoglobin A1C 5.3 % (4.0-6.0)
== END ==
PROVIDERS: Nurse Practitioner Family; Visit Provider Family Medicine
DX: E11.9 Type 2 diabetes mellitus without complications (principal); Z20.822 Contact with and (suspected) exposure to COVID-19; Z01.84 Encounter for antibody response examination; Z79.84 Long term (current) use of oral hypoglycemic drugs
CPT/HCPCS: 36415; 82951; 83036; 86328

== ENCOUNTER → 2021-01-21 08:37 | Outpatient (CLI) | payer OTHER, SELFPAY ==
--- NOTE | 2021-01-21 08:37 | MR_ITS ---
PROCEDURE: MR ABDOMEN WO/W CON CLINICAL INDICATION: Hypoglycemia COMPARISON: No exams were available for comparison TECHNIQUE: Routine multiplanar multi echo sequences are performed without gadolinium enhancement. FINDINGS: There is a small cyst in the left hepatic lobe segment 2 measuring approximately 5 mm. The liver has an otherwise unremarkable appearance. The spleen, adrenal glands, pancreas, gallbladder, and kidneys have an unremarkable appearance. There is a small cyst in the lower pole of the left kidney at approximately 4 mm. MRCP images are unremarkable. Normal caliber biliary tree. No common duct stones or cholelithiasis. There are numerous bilateral breast cysts the largest in the left breast medially at 2.4 cm IMPRESSION: Unremarkable MRI of the abdomen. No pancreatic mass apparent. Numerous bilateral breast cysts the largest on the left at 2.4 cm Dictated by: Juan Luis Maldonado MD 01/22/2021 15:03 Juan Luis Maldonado MD in [facility] 01/22/2021 15:03
== END ==
PROVIDERS: PCP Emergency Medicine; Visit Provider Nurse Practitioner Family
DX: E16.2 Hypoglycemia, unspecified (principal)
CPT/HCPCS: 74183; 76376; A9576

== ENCOUNTER → 2021-05-11 12:40 | Outpatient (CLI) | payer OTHER, SELFPAY | PROVIDERS: PCP Nurse Practitioner Family; Visit Provider Nurse Practitioner Family | DX: Z11.52 Encounter for screening for COVID-19 (principal) | CPT/HCPCS: C9803; U0003; U0005 ==

== ENCOUNTER → 2021-07-10 15:03 | Outpatient (CLI) | payer OTHER, SELFPAY ==
--- NOTE | 2021-07-10 15:07 | MM_ITS ---
PROCEDURE INFORMATION: Exam: MG Bilateral Screening 3D Mammography Exam date and time: 07/10/2021 3:03 PM Age: 45 years old Clinical indication: Screening examination TECHNIQUE: Imaging protocol: Bilateral Screening tomosynthesis and 2D mammography including computer-aided detection (CAD) when performed. COMPARISON: 1. MG MM DIG MAMM BI DX W/CAD 07/08/2020 1:32 PM 2. MG MM DIG MAMM BI DX W/CAD 06/20/2019 1:39 PM FINDINGS: MAMMOGRAPHY: Breast composition: The breasts are extremely dense, which lowers the sensitivity of mammography. Mass: None. Architectural distortion: None. Calcifications: No suspicious calcifications. Asymmetric density: None. Skin thickening: None. Axillary adenopathy: None. IMPRESSION: No mammographic evidence of malignancy. Annual screening is recommended unless otherwise clinically indicated. ASSESSMENT: BI-RADS Category 1: Negative
== END ==
PROVIDERS: PCP Nurse Practitioner Family; Visit Provider Emergency Medicine
DX: Z12.31 Encounter for screening mammogram for malignant neoplasm of breast (principal)
CPT/HCPCS: 77063; 77067

== ENCOUNTER → 2021-08-21 12:07 | Outpatient (CLI) | payer OTHER, SELFPAY ==
[2021-08-21 17:11] LABS: Hemoglobin A1C 5.1 % (4.0-6.0)
== END ==
PROVIDERS: PCP Nurse Practitioner Family; Visit Provider Nurse Practitioner Family
DX: E11.9 Type 2 diabetes mellitus without complications (principal); Z79.84 Long term (current) use of oral hypoglycemic drugs
CPT/HCPCS: 83036

== ENCOUNTER 2021-12-06 23:50 | Emergency (ER) | payer BC, SELFPAY ==
[2021-12-06 23:51] VITALS: BMI 27.0
[2021-12-07 00:11] VITALS: BP 173/89; PULSE 103; RESP 22; TEMP 36.8; O2SAT 99; BMI 27.0
[2021-12-07 00:39] VITALS: BP 118/63; PULSE 92; RESP 18; TEMP 36.7; O2SAT 98
--- NOTE | 2021-12-07 01:01 | HMH.EDALLER ---
Discharge Plan Disposition Patient Disposition: Home, Self-Care Chief Complaint: Allergic Reaction Prescriptions Prescriptions: No Action Ozempic 0.25 mg or 0.5 mg(2 mg/1.5 mL) pen injector SQ (DME) Dexcom G6 Virologist Misc See Rx Instructions .ROUTE .MEDSUPPLY Qty: 1 Rx Instructions: As directed (DME) Dexcom G6 Sensor Device See Rx Instructions .ROUTE .MEDSUPPLY Qty: 3 Label Comments: USE DIRECTED TO TEST BLOOD GLUCOSE LEVEL Rx Instructions: As directed (DME) Dexcom G6 Transmitter Device See Rx Instructions .ROUTE .MEDSUPPLY Qty: 1 Label Comments: USE DIRECTED TO TEST BLOOD GLUCOSE LEVEL Rx Instructions: As directed dextroamphetamine-amphetamine [Adderall] 5 mg tablet 5 mg PO .COMPLEX Qty: 60 0RF Rx Instructions: 5 mg PO give in the am and at noon fluticasone propionate [Flonase Allergy Relief] 50 mcg/actuation spray,suspension 1 spray INTRANASAL DAILY Qty: 16 2RF Rx Instructions: administer into each nostril [employer] HypoPen 2-Pack 1 mg/0.2 mL auto-injector 1 mg SQ ONCE Qty: 0.4 0RF phentermine [Adipex-P] 37.5 mg tablet 37.5 mg PO DAILY Qty: 30 0RF Rx Instructions: must administer 30 minutes before or 1-2 hours after breakfast prazosin 1 mg capsule 1 mg PO HS Qty: 30 1RF fluconazole [Diflucan] 150 mg tablet 150 mg PO DAILY 3 Days Qty: 3 0RF naproxen 500 mg tablet 500 mg PO BID Qty: 30 0RF Referrals Follow up/Referrals: Bruce Ovalle MD [Primary Care Provider] - See instructions Clinical Impressions Clinical Impression: Allergic reaction, Urticaria Instructions Patient Instructions: DI for Hives Discharge ED Provider: Bruce Ovalle Allergic React/Insect Bite HPI General Chief complaint: Allergic Reaction Stated complaint: allergic reaction Time Seen by Provider: 12/07/21 00:15 Mode of Arrival - ED Triage: Ambulatory Source of Information: Patient Limitations: No Limitations History of Present Illness HPI narrative: itchy with hives which started tonight w/o known stimulus complaint: hives Onset (ago): hour(s) Exposure: unknown Symptoms: rash and itching Treatment prior to arrival: none Allergies Allergy/AdvReac Type Severity Reaction Status Date / Time ciprofloxacin [From Cipro] Allergy Severe THROAT Verified 04/18/21 15:46 SWELLS erythromycin base Allergy Severe THROAT Verified 04/18/21 15:46 [From Asif-Tab] SWELLS cephalexin Allergy Mild I-RASH Verified 04/18/21 15:46 Penicillins Allergy Mild I-RASH Verified 04/18/21 15:46 sulfamethoxazole Allergy Mild I-RASH Verified 04/18/21 15:46 [From Bactrim] trimethoprim [From Bactrim] Allergy Mild I-RASH Verified 04/18/21 15:46 Severity: moderate Related Data Home Medications Medication Instructions Recorded Confirmed blood-glucose meter,continuous #1 ea 11/12/20 04/18/21 (Dexcom G6 Virologist misc) blood-glucose sensor (Dexcom G6 #3 ea 11/12/20 04/18/21 Sensor device) blood-glucose transmitter (Dexcom #1 ea 11/12/20 04/18/21 G6 Transmitter device) semaglutide 0.25 mg or 0.5 mg (2 ml SQ 11/12/20 04/18/21 mg/1.5 mL) subcutaneous pen injector ([employer]) Previous Rx's Medication Instructions Recorded fluticasone propionate 50 1 spray intranasal DAILY #16 grams 07/19/20 mcg/actuation nasal spray,suspension (Flonase Allergy Relief) glucagon 1 mg/0.2 mL subcutaneous 1 mg (0.2 mL) SQ ONCE #0.4 mL 10/16/20 auto-injector ([employer] HypoPen 2-Pack) dextroamphetamine-amphetamine 5 mg 5 mg PO .COMPLEX #60 tabs 01/23/21 tablet (Adderall) phentermine 37.5 mg tablet 37.5 mg PO DAILY #30 tabs 06/20/21 (Adipex-P) prazosin 1 mg capsule 1 mg PO HS #30 caps 07/05/21 fluconazole 150 mg tablet 150 mg PO DAILY 3 days #3 tabs 08/13/21 (Diflucan) naproxen 500 mg tablet 500 mg PO BID #30 tabs 08/13/21 PFSH PFSH Social History Smoking Status: Never smoker alcohol intake: ne
== END 2021-12-07 00:45 | disposition home or self-care (01) ==
PROVIDERS: Emergency Provider Emergency Medicine; PCP Emergency Medicine
DX: L23.9 Allergic contact dermatitis, unspecified cause (principal)
CPT/HCPCS: 96374; 96375; 99284

== ENCOUNTER 2022-07-29 07:27 | Day surgery (SDC) | payer BC, SELFPAY ==
[2022-06-15 14:42] VITALS: BMI 29.5
[2022-07-20 13:07] VITALS: BMI 29.5
[2022-07-29 07:39] VITALS: BP 144/74; PULSE 83; RESP 16; O2SAT 99
[2022-07-29 07:48] VITALS: BMI 27.2
[2022-07-29 08:03] LABS: POC Glucose,Bedside 92 (70-110)
[2022-07-29 08:18] LABS: Urine Pregnancy, HCG Qual. Negative (Negative)
[2022-07-29 08:54] VITALS: O2SAT 99
--- NOTE | 2022-07-29 09:12 | HMH.SCOPE ---
Procedure: Date: 07/29/22 Patient Date of :: 1975 Procedure Performed:: Colonoscopy Indications:: The patient is a 46 year old who presents for screening colonoscopy. There is a family history of colon cancer in a first degree relative (brother). Performing Provider:: Eliot Lovett MD Referring Provider:: Bruce Ovalle MD Sedation:: See RN records Procedure:: After placing the patient in the left lateral decubitus position, the colonoscopy was gently inserted into the rectum and under direct visualization advanced to the cecum which was identified by transillumination in the right lower quadrant, identification of the ileocecal valve, appendiceal orifice, and cecal strap. Color, texture, mucosa, and anatomy of the colon were carefully examined with the scope. Findings:: Anal canal: normal Rectum: hemorrhoids Sigmoid colon: normal without polyps or inflammatory changes Descending colon: normal without polyps or inflammatory changes Splenic flexure: normal Transverse colon: normal without polyps or inflammatory changes Hepatic flexure: normal Ascending colon: normal without polyps or inflammatory changes Cecum: normal Terminal ileum: not visualized Bowel preparation was excellent Recommendations:: Repeat colonoscopy in 5 years Complications:: none Estimated blood obtained (mL): 0
[2022-07-29 09:13] VITALS: BP 109/71; PULSE 84; RESP 12; TEMP 36.4; O2SAT 98
--- NOTE | 2022-07-29 09:16 | P.PN_ITS ---
[facility] Disclaimer: The information contained in this section may have been updated after the patient was seen, as this information can be updated by other users. Medical History Allergies Hyperinsulinemia Surgical History History of appendectomy History of section History of surgical removal of ganglion cyst Hx of melanoma excision Hx of ovarian cystectomy Family History Brother Family history of cancer Other Family history of atrial fibrillation Social History Smoking Status: Never smoker alcohol intake: current substance use type: denies use current occupational status: employed Travel in the last 8 weeks: None household members: significant other housing: house lives independently: Yes marital status: number of children: 2 education level: master's degree current occupational exposures/hazards: No caffeine: No special too needs: No agree to transfusion: No do you feel safe at home: Yes victim of physical abuse: No victim of emotional abuse: No victim of sexual abuse: No would you like helpful sources: No [facility] Anesthesia Checklist Patient Identification Patient Identification: Verbal (Name & ) Structural Data Admitted From: Home Planned Operative Procedure/s: colonoscopy Consent for Planned Operative Procedure(s) Verified: Yes Additional verifications Anesthesia Reactions: No Airway Assessment C-Spine Mobility Assessed: Yes TMJ Mobility Assessed: Yes Dentition: Good Dentition Neurological Assessment Level of Consciousness: Awake, Alert and Appropriate Anesthesia Plan Anesthesia Risk discussed: Yes Anesthesia Plan: Verified ASA Class: II Anesthesia Type: MAC
[2022-07-29 09:23] VITALS: BP 117/76; PULSE 76; RESP 16; O2SAT 99
[2022-07-29 09:33] VITALS: BP 105/71; PULSE 73; RESP 16; O2SAT 98
[2022-07-29 09:43] VITALS: BP 121/65; PULSE 69; RESP 14; TEMP 36.4; O2SAT 98
== END 2022-07-29 09:48 | disposition home or self-care (01) ==
PROVIDERS: PCP Emergency Medicine; Visit Provider Internal Medicine
PROC: 0DJ08ZZ Inspection of Upper Intestinal Tract, Via Natural or Artificial Opening Endoscopic (ICD-10-PCS; CPT 43235; principal; 2022-07-29 09:00)
DX: Z12.11 Encounter for screening for malignant neoplasm of colon (principal); Z80.0 Family history of malignant neoplasm of digestive organs; K64.9 Unspecified hemorrhoids; Z79.899 Other long term (current) drug therapy; E11.9 Type 2 diabetes mellitus without complications
CPT/HCPCS: 45378; 81025; 82962

== ENCOUNTER → 2022-10-07 16:10 | Outpatient (CLI) | payer BC, SELFPAY ==
--- NOTE | 2022-10-07 16:19 | MM_ITS ---
PROCEDURE INFORMATION: Exam: MG Bilateral Screening 3D Mammography Exam date and time: 10/07/2022 4:10 PM Age: 47 years old Clinical indication: Screening examination. Personal history of melanoma. Maternal grandmother and maternal aunt had breast cancer. TECHNIQUE: Imaging protocol: Bilateral Screening tomosynthesis and 2D mammography including computer-aided detection (CAD) when performed. COMPARISON: 1. MG MM DIG SCREENING MAMM BI W/CAD 07/10/2021 3:03 PM 2. MG MM DIG MAMM BI DX W/CAD 07/08/2020 1:32 PM 3. MG MM DIG MAMM BI DX W/CAD 06/20/2019 1:39 PM 4. MG MM DIG MAMM BI DX W/CAD 11/14/2018 2:11 PM FINDINGS: MAMMOGRAPHY: Breast composition: The breasts are extremely dense, which lowers the sensitivity of mammography. Mass: Oval, partly visualized, partly circumscribed, approximately 2.0 cm mass in the left lower inner quadrant middle 3rd, CC frame 39 and MLO frame 46. Biopsy clip is noted at the lateral superior edge of the mass. Architectural distortion: None. Calcifications: Questionable loose grouping of calcifications in the left upper outer quadrant posterior 3rd, better seen in the MLO projection. Asymmetric density: None. Skin thickening: None. Axillary adenopathy: None. Other: Bilateral biopsy clips. IMPRESSION: Patient will be recalled for left diagnostic mammography with magnification views in CC and true lateral projections for further evaluation of left breast calcifications as well as left sonography for further evaluation of left breast mass. ASSESSMENT: BI-RADS Category 0: Incomplete- Need Additional Imaging Evaluation and/or Prior Mammograms for Comparison
== END ==
PROVIDERS: PCP Emergency Medicine; Visit Provider Nurse Practitioner Women's Health
DX: Z12.31 Encounter for screening mammogram for malignant neoplasm of breast (principal)
CPT/HCPCS: 77063; 77067

== ENCOUNTER → 2022-10-21 13:14 | Outpatient (CLI) | payer BC, SELFPAY ==
--- NOTE | 2022-10-21 13:19 | MM_ITS ---
PROCEDURE INFORMATION: Exam: US Left Breast, Complete MG Left Diagnostic Breast Tomosynthesis Exam date and time: 10/21/2022 1:09 PM Age: 47 years old Clinical indication: Patient recalled on the basis of a screening mammogram for further evaluation; Left breast; Mass, and calcifications TECHNIQUE: Imaging protocol: Complete ultrasound of all four quadrants of the left breast and the retroareolar regions, including ultrasound of the axilla when performed. Left Diagnostic tomosynthesis and 2D mammography including computer-aided detection (CAD) when performed. Unilateral or bilateral exam. COMPARISON: 1. MG MM DIG SCREENING MAMM BI W/CAD 10/07/2022 4:10 PM 2. MG MM DIG SCREENING MAMM BI W/CAD 07/10/2021 3:03 PM FINDINGS: MAMMOGRAPHY: Digital diagnostic spot compression views of the left breast demonstrate a persistent 2.6 cm mass in the anterior left upper breast. Magnification views were obtained in the lower inner quadrant as well. No magnification views of the upper outer posterior left breast were submitted for review. ULTRASOUND: Sonographic images of the left breast including the retroareolar region, all 4 quadrants and the axilla do not demonstrate any solid masses. Scattered cysts are present including a dominant 3.1 cm cyst in the 11 o'clock axis 2 cm from the nipple most closely corresponding to the mass on mammography. No architectural distortion or acoustical shadowing. No skin thickening or axillary adenopathy. IMPRESSION: 1. Mass on screening mammography is located in the anterior third of the left upper breast corresponding to benign cystic change on sonography. 2. Patient to return for magnification views of the posterior left upper outer quadrant for further evaluation of upper outer quadrant calcifications ASSESSMENT: BI-RADS Category 0: Incomplete- Need Additional Imaging Evaluation and/or Prior Mammograms for Comparison
== END ==
LOC: RAD 13:14
PROVIDERS: PCP Emergency Medicine; Visit Provider Nurse Practitioner Women's Health
DX: R92.2 Inconclusive mammogram (principal)
CPT/HCPCS: 76641; 77061; 77065; G0279

== ENCOUNTER 2022-11-04 08:30 | Day surgery (SDC) | payer BC, SELFPAY ==
[2022-11-03 09:58] VITALS: BMI 27.0
[2022-11-04] VITALS (10 sets, daily range): BP systolic 105–138; BP diastolic 52–86; PULSE 66–92; RESP 12–18; TEMP 36.2–37.1; O2SAT 90–99
--- NOTE | 2022-11-04 09:25 | EXP.ANES.CKL ---
[facility] Disclaimer: The information contained in this section may have been updated after the patient was seen, as this information can be updated by other users. Medical History Allergies Asthma History of COVID-19 History of stroke Hyperinsulinemia Surgical History History of abdominoplasty History of appendectomy History of section History of laparoscopy History of surgical removal of ganglion cyst Hx of melanoma excision Hx of ovarian cystectomy Family History Brother Family history of cancer Other Family history of atrial fibrillation Social History (Updated 11/04/22 @ 09:05 by Marly Shipley RN) Smoking Status: Never smoker alcohol intake: current substance use type: denies use current occupational status: employed Travel in the last 8 weeks: None household members: significant other housing: house lives independently: Yes marital status: number of children: 2 education level: master's degree current occupational exposures/hazards: No caffeine: No special too needs: No agree to transfusion: No do you feel safe at home: Yes victim of physical abuse: No victim of emotional abuse: No victim of sexual abuse: No would you like helpful sources: No [facility] Anesthesia Checklist Structural Data Admitted From: Home Planned Operative Procedure/s: Hysteroscopy, D&C, Novasure Ablation Consent for Planned Operative Procedure(s) Verified: Yes Verified Documents: Surgical Consent and History and Physical NPO Status Verified Time NPO: 00:00 Additional verifications Anesthesia Reactions: No Hx Blood Transfusions: No Blood Transfusion Reaction: No Airway Assessment Mallampati Score:: Class I C-Spine Mobility Assessed: Yes TMJ Mobility Assessed: Yes Dentition: Good Dentition Neurological Assessment Level of Consciousness: Awake and Alert Anesthesia Plan Anesthesia Risk discussed: Yes Anesthesia Plan: Verified ASA Class: II Anesthesia Type: General
[2022-11-04 09:35] LABS: Urine Pregnancy, HCG Qual. Negative (Negative)
--- NOTE | 2022-11-04 10:27 | EXP.OP.NOTE ---
Date of procedure: 11/04/22 Pre-op Diagnosis:: Irregular bleeding, thickened endometrium, fibroid uterus Post-op Diagnosis:: Irregular bleeding, thickened endometrium fibroid uterus Procedure performed:: Hysteroscopy, dilation and curettage, NovaSure ablation Surgeon:: Lucio Kruse MD ENTER[employer]TEGRATION DEVELOPER:: Frankie Cardoso Anesthesia: LMA Estimated blood loss (mL): 25 Clinical Note:: She is a 47-year-old lady who complains of irregular heavy periods. She has had a previous cryoablation. Ultrasound showed that she had 2 small fibroids in the myometrium. Operative findings:: She had a normal-appearing endometrial cavity that sounded to 8 cm. The cervix was somewhat stenotic. The endometrial cavity showed a thin endometrium and tubal ostia were seen and appeared normal. Operative note:: She was taken to the operating room where LMA anesthesia was found be adequate. She was prepped and draped in the normal sterile fashion in the lithotomy position. A weighted speculum was placed in the vagina and the anterior lip of the cervix was grasped with a tenaculum. The cervix was then dilated to approximately 6 mm. I then inserted a hysteroscope into the uterine cavity and the findings were as previously dictated. I then performed a gentle curettage with a medium curette. I then sounded the uterus and determine the length of the uterus. I then inserted the NovaSure device and determine the width of the endometrial cavity. The length of the endometrial cavity was 5.5 cm and the width was 4.3 cm. This was placed into the NovaSure device. I then ran the device through its program. I further inspected the endometrial cavity and was found to be completely charred. I then injected 30 cc of 0.5% ropivacaine at the 3:00, 5:00, 7:00, and 9:00 positions of the cervix. She tolerated procedure well and was taken to the recovery room in excellent condition. All sponge and instrument counts were correct. The estimated blood loss was less than 25 cc. Condition: stable Disposition: PACU Specimens:: Endometrial curettings Complications:: None
--- NOTE | 2022-11-04 10:33 | P.PNANES_ITS ---
[facility] Anesthesia Record Part I Anesthesia Record I Intake, IV Amount: 800 Hydration: Adequate Estimated blood loss (mL): 25 Urine output (mL): 0 Blood Pressure: 105/59 SaO2: 92 Pulse Rate: 88 Airway Patency: Patent Respiratory Rate: 13 Temperature: 97.5 F Patient is:: Drowsy and Oral/Nasal airway Stable to PACU at:: 10:32
[2022-11-04 10:49] LABS: POC Glucose,Bedside 85 (70-110)
--- NOTE | 2022-11-04 13:04 | P.PNANES_ITS ---
[facility] Anesthesia Record Part II Anesthesia Record Part II Discharge Time: 11:02 Destination: Surgical Day Care (OP Surgery) PACU nurse assessment reviewed?: Yes Patient Condition:: Good Anesthesia Complications:: None Swallowing reflex intact?: Yes Airway Patency: Patent Cyanosis?: No Blood Pressure: 134/86 SaO2: 99 Respiratory Rate: 18 Pulse Rate: 90 Temperature: 97.2 F Mental Status: Alert & Oriented Pain level:: 2 Nausea and/or vomitting:: None Intake, IV Amount: 0 Hydration: Adequate
[2022-11-05 08:50] LABS: POC Glucose,Bedside 90 (70-110)
== END 2022-11-04 11:48 | disposition home or self-care (01) ==
PROVIDERS: PCP Emergency Medicine; Visit Provider Nurse Practitioner Obstetrics & Gynecology
PROC: (CPT 58563; principal; 2022-11-04 10:00)
DX: N92.6 Irregular menstruation, unspecified (principal); D25.9 Leiomyoma of uterus, unspecified; E11.9 Type 2 diabetes mellitus without complications
CPT/HCPCS: 58563; 81025; 82962; 96374; J2405

== ENCOUNTER → 2022-12-16 13:56 | Outpatient (CLI) | payer BC, SELFPAY ==
--- NOTE | 2022-12-16 13:58 | MM_ITS ---
PROCEDURE INFORMATION: Exam: MG Left Diagnostic Breast Tomosynthesis Exam date and time: 12/16/2022 1:57 PM Age: 47 years old Clinical indication: Callback for additional assessment of upper outer posterior left breast calcifications identified on 10/07/2022 TECHNIQUE: Imaging protocol: Left Diagnostic tomosynthesis and 2D mammography including computer-aided detection (CAD) when performed. Unilateral or bilateral exam. COMPARISON: 1. MG MM DIG MAMM DX UNILAT LT CAD 10/21/2022 1:09 PM 2. MG MM DIG SCREENING MAMM BI W/CAD 10/07/2022 4:10 PM 3. MG MM DIG SCREENING MAMM BI W/CAD 07/10/2021 3:03 PM 4. MG MM DIG MAMM BI DX W/CAD 07/08/2020 1:32 PM FINDINGS: MAMMOGRAPHY: Cc/lateral magnification views were obtained. In the upper outer posterior left breast there are scattered and grouped calcifications, most of which are showing teacup configuration on lateral, indicating benign milk of calcium. There are loosely grouped calcifications in the upper outer posterior left breast which are thought to be present on prior mammograms dating as far back as 07/08/2020. No associated mass or architectural distortion IMPRESSION: Six-month follow-up left diagnostic mammogram is recommended to assess stability of what I suspect to reflect benign milk of calcium in the upper outer posterior left breast ASSESSMENT: BI-RADS category 3: Probably benign
== END ==
PROVIDERS: PCP Emergency Medicine; Visit Provider Nurse Practitioner Women's Health
DX: R92.1 Mammographic calcification found on diagnostic imaging of breast (principal)

== ENCOUNTER → 2022-12-30 10:57 | Outpatient (CLI) | payer BC, SELFPAY ==
--- NOTE | 2022-12-30 11:02 | US_ITS ---
FINAL REPORT CLINICAL HISTORY: previous smoker, hx of CVA/TIA 2004, bilateral claudication, bilateral numbness, bilateral skin changes FINDINGS: COMPLETE ANKLE/BRACHIAL INDICES BILATERAL Complete ankle brachial indices were obtained. The right BARRETT is 1.2. The left BARRETT is 1.2. IMPRESSION: ABIs are within normal limits bilaterally. Reviewed, Interpreted and Dictated by Neal Jean III, MD Transcribed by Brianna Knox Authenticated and [facility]
== END ==
LOC: RT 10:57
PROVIDERS: PCP Emergency Medicine; Visit Provider Internal Medicine
DX: D89.9 Disorder involving the immune mechanism, unspecified (principal); I77.6 Arteritis, unspecified; L81.9 Disorder of pigmentation, unspecified; R06.00 Dyspnea, unspecified; R07.9 Chest pain, unspecified; R60.0 Localized edema; R94.31 Abnormal electrocardiogram [ECG] [EKG]; Z86.73 Personal history of transient ischemic attack (TIA), and cerebral infarction without residual deficits
CPT/HCPCS: 93923

== ENCOUNTER 2023-01-06 08:02 | Outpatient (CLI) | payer BC, SELFPAY ==
[2023-01-06] VITALS (8 sets, daily range): BP systolic 114–143; BP diastolic 63–77; PULSE 56–81; RESP 16–18; TEMP 36.1–36.6; O2SAT 97–100; BMI 27.2
--- NOTE | 2023-01-06 08:06 | CA_ITS ---
APPROVED REPORT EXAM: Comprehensive 2D, Doppler, and color-flow Echocardiogram Utility Operator Yarn: Ambreen Barrios CRT Ht: 4 ft 11 in Wt: 146lbs BSA: 1.61 BP: 143/69 mmHg Indications: Abnormal ECG, Chest Pain, Fatigue, Peripheral Edema, asthma, hx of covid, hx of CVA 2D Dimensions LVOT 1.79 cm (M/F) 1.5-2.5 LA Volume 28.50 mL LA Volume Index 17.70 mL/m2 (M/F) 16-34 M-Mode Dimensions RVDd 1.82 cm (0.9-2.6) LA Diam 3.12 cm (1.9-4.0) LVDd 4.68 cm (3.5-5.7) Ao Diam 3.55 cm (2.0-3.7) IVSd 1.13 cm (0.6-1.1) PWd 0.66 cm (0.6-1.1) EDV (Teich) 101.30 mL TAPSE 2.04 (<1.7) LV Diastology E Decel Time 153.00 (160-240 msec) E/A Ratio 0.83 MED E' 9.80 (< 7 cm/sec) MED A' 15.00 cm/s E'/MED E' Ratio 6.16 (>14) LAT E' 13.80 (<10 cm/sec) LAT A' 11.90 cm/s E/LAT E' Ratio 4.38 (>14) Aortic Valve AO Peak GR. 4.60 mmHg Mitral Valve MV A Velocity 73.00 (40-130 cm/s) E/A Ratio 0.83 MV Decel. Time 153.00 (160-240 ms) Pulmonary Valve PV Peak Velocity 106.00 (50-150 cm/s) Tricuspid Valve TR P. Velocity 172.00 cm/s RAP Estimate 10.00 mmHg RVSP 21.80 mmHg Left Ventricle The left ventricle is normal size. The left ventricular systolic function is normal. The left ventricular ejection fraction is within the normal range. There is normal left ventricular wall thickness. There is normal LV segmental wall motion. The left ventricular diastolic function is normal. LVEF is 60%. Right Ventricle The right ventricle is normal size. The right ventricular systolic function is normal. Atria The left atrium size is normal. The right atrium size is normal. There is no Doppler evidence of interatrial shunt. Aortic Valve The aortic valve is normal in structure. The aortic valve is trileaflet. There is no aortic valvular stenosis. No aortic regurgitation is present. Mitral Valve The mitral valve is normal in structure. No evidence of mitral valve stenosis. No Mitral Regurgitation. Tricuspid Valve The tricuspid valve leaflets are thin and pliable. Trace tricuspid regurgitation. RVSP is normal. Pulmonic Valve The pulmonary valve is normal in structure. Trace pulmonic regurgitation. Great Vessels The aortic root is normal in size. The ascending aorta is normal in size. IVC is normal in size and collapses >50% with inspiration. Pericardium There is no pericardial effusion. Other Information Study Quality: Adequate Conclusion Normal biventricular systolic function. No significant valvular stenosis or regurgitation. Electronically signed by : Cris Archuleta MD 01/08/2023 21:10:33
--- NOTE | 2023-01-06 09:06 | CT_ITS ---
APPROVED REPORT Three Dimensional Art Instructor: CLINICAL INDICATION Chest Pain TECHNIQUE Image Acquisition: A 128 slice MDCT scanner ([employer] View) was used for data acquisition. A noncontrast coronary calcium scan was performed. A CT attenuation threshold of 130 Hounsfield units (HU) was used for the detection of calcium in contiguous voxels of 1 sq mm in area to be counted as individual lesions. Bolus tracking in the ascending aorta with a threshold of 180 HU was performed. Immediately afterwards, ECG synchronized cardiac CT was then performed from the cardiac base to apex using retrospective gating with ECG tube current modulation. A total of 85 mL of Isovue 370 mg/mL contrast medium was administered at 5 mL/sec followed by a saline flush using a biphasic injection protocol. A tube voltage of 120 KVp was used. The patient received the following medications prior to the cardiac CT. 15 mg of intravenous metoprolol 0.8 mg of sublingual nitroglycerin The average heart rate at the time of acquisition was 56 bpm and regular. Image Reconstruction Transaxial images were reconstructed at 0.67 mm slide thickness. Data was reviewed interactively on an advanced workstation capable of 2 and 3-dimensional displays in all conventional reconstruction formats, including multiplanar reformations, maximum intensity projections, curved multiplanar reformations, and volume rendered reconstructions. When applicable, selected routine images describing the relevant coronary anatomy and pathology were saved and sent to PACS. Complications None Technical Quality Overall image quality was good. Coronary artery opacification was adequate. Total DLP (Dose-Length Product) is 1247.5 mGy-cm. The reported value represents the total of one or more individual components during the CT acquisition of this date and at this time, and as such, the same value may appear in more than one CT report depending on the interpreting/reporting physicians. COMPARISON None FINDINGS CT Coronary Calcium Scoring LMA (Left Main Artery) = 0 LAD (Left Anterior Descending) = 0 LCX (Left Coronary Circumflex) = 0 RCA (Right Coronary Artery) = 0 Total Calcium Score = 0 using the AJ-130 method. The interpretation of the calcium heart score is based on the following continuum*: 0 = no calcified plaque detected (risk of coronary artery disease is very low ??? less than 5%) 1-10 = calcium detected in extremely minimal levels (risk of coronary diseases is still low ??? less than 10%) 11-100 = mild levels of plaque detected with certainty (mild or minimal narrowing of heart arteries is likely) 101-400 = definite,at least moderate levels of plaque detected (relatively high risk of a heart attack within 3-5 years) >401-999 = extensive levels of plaque detected (high risk of heart attack, high levels of vascular disease are present, high likelihood of at least one significant coronary narrowing) *The calcium heart score quantifies the burden of coronary calcification/plaque in the coronary arteries. The calcium heart score is not able to evaluate the presence or burden of non-calcified (i.e. soft) plaque. There is no identifiable calcification in the aortic valve, mitral annulus or mitral valve, pericardium, or myocardium. Coronary CT Angiography Coronaries have normal origin and proximal course. The coronary arterial system is right dominant. Note: Stenosis is reported as maximum percentage diameter stenosis. Quantitative Stenosis Grading: Left Main (LM): The left main originates normally from the left sinus of Valsalva. The LM bifurcates into the left anterior descending artery and left circumflex artery. The LM is patent with no evidence of atherosclerosis. Left Anterior Descending (LA
[2023-01-06 09:28] LABS: Urine Pregnancy, HCG Qual. Negative (Negative)
[2023-01-06 09:39] LABS: POC Glucose,Bedside 93 (70-110)
--- NOTE | 2023-01-06 10:01 | PC.NURSE ---
Spoke with Dr. Strong. Pt stated she preferred not to take the metoprolol PO and start with IV instead. Dr. Strong confirmed that it was ok to start with Metoprolol 5mg IV orders.
--- NOTE | 2023-01-06 10:47 | PC.NURSE ---
0943- pt to post op at this time. drinking a diet pepsi, voices no needs or concerns.
== END 2023-01-06 11:32 | disposition home or self-care (01) ==
PROVIDERS: PCP Emergency Medicine; Visit Provider Internal Medicine
DX: R06.00 Dyspnea, unspecified (principal); R07.9 Chest pain, unspecified; R60.0 Localized edema; D89.9 Disorder involving the immune mechanism, unspecified; I77.6 Arteritis, unspecified; R94.31 Abnormal electrocardiogram [ECG] [EKG]; Z86.73 Personal history of transient ischemic attack (TIA), and cerebral infarction without residual deficits
CPT/HCPCS: 75571; 75574; 81025; 82962; 93306; Q9967

== ENCOUNTER 2023-02-16 06:54 | Day surgery (SDC) | payer BC, SELFPAY ==
[2023-02-15 12:46] VITALS: BMI 29.4
[2023-02-16] VITALS (7 sets, daily range): BP systolic 117–138; BP diastolic 71–85; PULSE 68–89; RESP 16–19; TEMP 36.5–36.9; O2SAT 94–100
--- NOTE | 2023-02-16 07:49 | P.PCN_ITS ---
Procedure: Date: 02/16/23 Patient Date of :: 1975 Procedure Performed:: Esophagogastroduodenoscopy with biopsy Indications:: Gastroesophageal reflux (despite maximal medical therapy) Hiatal hernia Family history of gastric cancer/Raman syndrome (patient relates prior genetic testing negative) Performing Provider:: Rohit Vasquez MD Referring Provider:: . Sedation:: Monitored anesthesia care Procedure:: After informed consent was obtained the patient was taken to the endoscopy suite. Sedation ensued after the patient was transferred to the left lateral decubitus position. Pulse, blood pressure, and oxygen saturation were monitored throughout the procedure. The endoscope was advanced beyond the duodenal bulb. Retroflexion within the gastric lumen was accomplished. The gastroscope was carefully removed and the patient was transferred to recovery in stable condition. Please see findings and specimens below for detail. Findings:: Gastroesophageal junction displaced at 33 cm Moderate sliding hiatal hernia Minimal patchy gastritis Specimens:: Antral biopsy Recommendations:: Follow-up pathology Consider UGI/SBFT Consider gastric emptying scan Consider gastroenterology consultation for further evaluation management of reflux despite medical therapy) pH probe, etc.) Consider referral to Dr. Eliot Germain at the [facility] for evaluation regarding hiatal hernia Complications:: No immediate Estimated blood obtained (mL): 1 Colonoscopy Component Colonoscopy Component Was a colonoscopy performed during today's procedure?: No
[2023-02-16 07:54] LABS: Urine Pregnancy, HCG Qual. Negative (Negative)
--- NOTE | 2023-02-16 08:20 | EXP.ANES.CKL ---
[facility] Disclaimer: The information contained in this section may have been updated after the patient was seen, as this information can be updated by other users. Medical History Abnormal electrocardiogram [ECG] [EKG] Allergies Asthma Discoloration of skin of lower leg Edema of both lower extremities Family history of ischemic heart disease before age 48 Hiatal hernia History of COVID-19 History of stroke Hyperinsulinemia Immune disorder Vasculitis Surgical History History of abdominoplasty History of appendectomy History of section History of hysteroscopy History of laparoscopy History of surgical removal of ganglion cyst Hx of melanoma excision Hx of ovarian cystectomy Family History Brother Family history of cancer Other Family history of atrial fibrillation Social History Smoking Status: Former smoker tobacco type: cigarettes alcohol intake: current substance use type: denies use current occupational status: employed Travel in the last 8 weeks: None household members: significant other housing: house lives independently: Yes marital status: number of children: 2 education level: master's degree current occupational exposures/hazards: No caffeine: No special too needs: No agree to transfusion: No do you feel safe at home: Yes victim of physical abuse: No victim of emotional abuse: No victim of sexual abuse: No would you like helpful sources: No [facility] Anesthesia Checklist Patient Identification Patient Identification: Arm Band, Family and Verbal (Name & ) Structural Data Admitted From: Home Planned Operative Procedure/s: EGD Consent for Planned Operative Procedure(s) Verified: Yes Verified Documents: Surgical Consent NPO Status Verified Time NPO: 22:30 Additional verifications Patient : No Anesthesia Reactions: No Hx Blood Transfusions: No Blood Transfusion Reaction: No Cardiovascular Assessment Heart Sounds: S1 & S2 Pulse Rhythm: Irregular Peripheral Edema: No Airway Assessment Mallampati Score:: Class II C-Spine Mobility Assessed: Yes TMJ Mobility Assessed: Yes Dentition: Good Dentition Neurological Assessment Level of Consciousness: Awake, Alert, Appropriate and Follows Commands Hx Seizures: No Numbness or tingling in extremities: No Anesthesia Plan Anesthesia Risk discussed: Yes Anesthesia Plan: Verified ASA Class: II Anesthesia Type: MAC
--- NOTE | 2023-02-16 08:21 | P.PNANES_ITS ---
[facility] Anesthesia Record Part I Anesthesia Record I Intake, IV Amount: 200 Hydration: Adequate Estimated blood loss (mL): 1 Urine output (mL): 0 Blood Products used (#): none Blood Pressure: 118/76 SaO2: 94 Pulse Rate: 89 Airway Patency: Patent Respiratory Rate: 16 Temperature: 98.4 F Patient is:: Awake, Drowsy and Stable Stable to PACU at:: 08:19
== END 2023-02-16 08:45 | disposition home or self-care (01) ==
PROVIDERS: PCP Emergency Medicine; Visit Provider Surgery
PROC: 0DJ08ZZ Inspection of Upper Intestinal Tract, Via Natural or Artificial Opening Endoscopic (ICD-10-PCS; CPT 43235; principal; 2023-02-16 08:00)
DX: K21.9 Gastro-esophageal reflux disease without esophagitis (principal); K44.9 Diaphragmatic hernia without obstruction or gangrene; K29.70 Gastritis, unspecified, without bleeding; Z80.0 Family history of malignant neoplasm of digestive organs; K31.89 Other diseases of stomach and duodenum
CPT/HCPCS: 43239; 81025

== ENCOUNTER 2023-06-02 16:04 | Outpatient (CLI) | payer BC, SELFPAY ==
--- NOTE | 2023-06-02 16:08 | MR_ITS ---
FINAL REPORT CLINICAL HISTORY: VSION CHANGES BLURRY VISION AND DOUBLE VISION STARTED 05/06/23 COMPARISON: 12/09/2018 FINDINGS: Multi planar MR imaging was obtained through the brain without contrast. The midline structures appear intact. There is no evidence of Chiari malformation. There are minimal scattered foci of increased signal in the deep white matter. On diffusion-weighted images there is no evidence of restricted diffusion. The visualized paranasal sinuses demonstrate normal signal voids. The seventh and eighth nerve root complexes are intact. IMPRESSION: Abnormal signal in the deep white matter, nonspecific but may be due to chronic ischemia. Reviewed, Interpreted and Dictated by Derek Thomas MD Transcribed by Brianna Knox Authenticated and [facility]
== END 2023-06-02 23:59 ==
LOC: RAD 16:05
PROVIDERS: PCP Family Medicine; Visit Provider Family Medicine
DX: H53.9 Unspecified visual disturbance (principal)
CPT/HCPCS: 70551

== ENCOUNTER 2023-06-08 19:38 | Emergency (ER) | payer BC, SELFPAY ==
[2023-06-08] VITALS (8 sets, daily range): BP systolic 115–158; BP diastolic 71–89; PULSE 81–101; RESP 18–20; TEMP 36.9; O2SAT 97–100; BMI 29.3
--- NOTE | 2023-06-08 19:47 | XR_ITS ---
PROCEDURE INFORMATION: Exam: XR Chest Exam date and time: 06/08/2023 7:52 PM Age: 47 years old Clinical indication: Other: Left sided numbness; Additional info: L sided numbness, stroke robins TECHNIQUE: Imaging protocol: Radiologic exam of the chest. Views: 1 view. COMPARISON: CR CXR2V XR chest 2V 05/01/2017 11:37 AM FINDINGS: Lungs: Low lung volumes. Pulmonary vasculature grossly normal. Granulomatous calcification in the peripheral left mid lung. No gross pulmonary infiltrates or edema pattern. Minor subsegmental atelectasis in the lung bases. Pleural spaces: No pleural effusion. No pneumothorax. Heart/Mediastinum: Heart size normal. No tracheal/mediastinal shift. Bones/joints: No acute osseous abnormalities are identified. IMPRESSION: 1. No acute thoracic process. 2. Low lung volumes and minor basilar atelectasis.
--- NOTE | 2023-06-08 19:48 | CT_ITS ---
PROCEDURE INFORMATION: Exam: CT Head Without Contrast Exam date and time: 06/08/2023 7:53 PM Age: 47 years old Clinical indication: Stroke-like symptoms; Headache; Additional info: [address], L sided vision loss, L sided tingling TECHNIQUE: Imaging protocol: Computed tomography of the head without contrast. Radiation optimization: All CT scans at this facility use at least one of these dose optimization techniques: automated exposure control; mA and/or kV adjustment per patient size (includes targeted exams where dose is matched to clinical indication); or iterative reconstruction. Other technique: STROKE PROTOCOL was implemented. COMPARISON: CT ANGIO HEAD 06/08/2023 7:53 PM FINDINGS: Brain: The IACs are grossly normal. No extra-axial fluid collections. No evidence of acute intracranial hemorrhage. Cerebral/cerebellar henning-white matter differentiation is well maintained. No CT evidence of large territory acute or subacute intracranial ischemia/infarct. No intracranial mass lesions. No midline shift or herniation. Cerebral ventricles: Ventricles normal. Pituitary gland and sella: The sella is grossly normal. Paranasal sinuses: Visualized paranasal sinuses are clear. Mastoid air cells: Visualized mastoid air cells are clear. Orbital cavities: No acute intraorbital findings. Bones/joints: The calvarium and visualized facial bones are intact. Soft tissues: The scalp and visualized soft tissues demonstrate no acute abnormality. Vasculature: Mild calcific atherosclerosis. No asymmetric vascular hyperdensities suggestive of thrombosis are identified. IMPRESSION: No acute intracranial process. No intracranial hemorrhage or mass effect. ASSESSMENT: ASPECTS ([place] Stroke Program Early CT Score) is 10.
--- NOTE | 2023-06-08 19:48 | CT_ITS ---
PROCEDURE INFORMATION: Exam: CTA Head With Contrast, Arteriography Exam date and time: 06/08/2023 7:53 PM Age: 47 years old Clinical indication: Stroke-like symptoms; Headache; Additional info: [address], L sided vision loss, L sided tingling TECHNIQUE: Imaging protocol: Computed tomographic angiography of the head with contrast. Exam focused on the arteries. 3D rendering (Not supervised by radiologist): MIP and/or 3D reconstructed images were created by the technologist. Radiation optimization: All CT scans at this facility use at least one of these dose optimization techniques: automated exposure control; mA and/or kV adjustment per patient size (includes targeted exams where dose is matched to clinical indication); or iterative reconstruction. Contrast material: ISO 370; Contrast volume: 100 ml; Contrast route: INTRAVENOUS (IV); COMPARISON: CT HEAD/BRAIN WO CON 06/08/2023 7:53 PM FINDINGS: ANTERIOR CIRCULATION: Right internal carotid artery: The right ICA petrous segment is unremarkable. There is a 4 x 3 x 4 mm saccular aneurysm projecting medially from the proximal right ICA cavernous segments axial series 4, image 362. The right ICA supraclinoid segment is unremarkable. Right middle cerebral artery: Unremarkable. No occlusion or significant stenosis. No aneurysm. Right anterior cerebral artery: Unremarkable. No occlusion or significant stenosis. No aneurysm. The anterior communicating artery is unremarkable. Left internal carotid artery: The left ICA petrous segment is unremarkable. Minimal calcific plaque in the left ICA cavernous segment without stenosis. The left ICA supraclinoid segment is unremarkable. Left middle cerebral artery: Unremarkable. No occlusion or significant stenosis. No aneurysm. Left anterior cerebral artery: Unremarkable. No occlusion or significant stenosis. No aneurysm. POSTERIOR CIRCULATION: Right vertebral artery: Small/hypoplastic right vertebral artery, mostly terminating in PICA with a thin distal extension to basilar, anatomic variant. No occlusion or significant stenosis. No aneurysm. Left vertebral artery: Left vertebral artery is dominant. No occlusion or significant stenosis. No aneurysm. Basilar artery: Unremarkable. No occlusion or significant stenosis. No aneurysm. Right posterior cerebral artery: Unremarkable. No occlusion or significant stenosis. No aneurysm. Left posterior cerebral artery: Moderate-sized left posterior communicating artery present. No occlusion or significant stenosis. No aneurysm. Superior sagittal sinus: The dural venous sinuses and major cortical veins enhance appropriately without evidence of thrombosis. Brain: No enhancing brain lesions or vascular malformations are identified. Cerebral ventricles: No ventriculomegaly. Bones/joints: Unremarkable. No acute fracture. Soft tissues: Unremarkable. IMPRESSION: 1. No evidence of large vessel occlusion. No evidence of significant arterial stenosis or arterial dissection. 2. There is a 4 x 3 x 4 mm saccular aneurysm projecting medially from the proximal right ICA cavernous segment. No evidence of rupture.
--- NOTE | 2023-06-08 19:48 | CT_ITS ---
PROCEDURE INFORMATION: Exam: CTA Neck With Contrast Exam date and time: 06/08/2023 7:53 PM Age: 47 years old Clinical indication: Stroke-like symptoms; Visual disturbance; Additional info: [address], L sided vision loss, L sided tingling TECHNIQUE: Imaging protocol: Computed tomographic angiography of the neck with contrast. Exam focused on the cervical segments of the vasculature. 3D rendering (Not supervised by radiologist): MIP and/or 3D reconstructed images were created by the technologist. Radiation optimization: All CT scans at this facility use at least one of these dose optimization techniques: automated exposure control; mA and/or kV adjustment per patient size (includes targeted exams where dose is matched to clinical indication); or iterative reconstruction. Contrast material: ISOVUE; Contrast volume: 100 ml; Contrast route: INTRAVENOUS (IV); COMPARISON: CT ANGIO HEAD 06/08/2023 7:53 PM FINDINGS: Right common carotid artery: Normal. No stenosis. No dissection or occlusion. Right internal carotid artery: Normal. No stenosis. No dissection or occlusion. Right external carotid artery: Normal. No stenosis. No dissection or occlusion. Left common carotid artery: Normal. No stenosis. No dissection or occlusion. Left internal carotid artery: Normal. No stenosis. No dissection or occlusion. Left external carotid artery: Normal. No stenosis. No dissection or occlusion. Right vertebral artery: Small/hypoplastic right vertebral artery, anatomic variant. This largely terminates in PICA with thin extension to basilar. No stenosis. No dissection or occlusion. Left vertebral artery: Left vertebral artery is dominant. No stenosis. No dissection or occlusion. Brachiocephalic artery: The brachiocephalic artery is unremarkable. Right subclavian artery: The right subclavian artery is unremarkable. Left subclavian artery: The left subclavian artery is unremarkable. Aorta: The visualized aortic arch is unremarkable. Thyroid: The thyroid gland is unremarkable. Soft tissues: No significant soft tissue swelling or hematoma. Bones/joints: No acute osseous abnormalities are identified. Moderate disc degenerative changes C6-C7. Lungs: Granulomatous calcification in the left upper lobe. Visualized pulmonary apices are otherwise clear. IMPRESSION: 1. No evidence of arterial stenosis, occlusion, dissection, or aneurysm/pseudoaneurysm. 2. The findings were verbally communicated via telephone conference with Cynthia Larson at 8:24 PM EDT on 06/08/2023. The findings were acknowledged and understood. REFERENCES: NASCET CRITERIA. The degree of stenosis in the cervical segment of the internal carotid artery is based on NASCET criteria. Normal is no stenosis. Mild is less than 50% stenosis. Moderate is 50-69% stenosis. Severe is 70% to 99% stenosis. Total occlusion is no detectable patent lumen.
[2023-06-08 19:57] LABS: Basophils # 0.1 K/mm3 (0-0.2); Basophils % 1.2 % (0.1-2.0); Eosinophils # 0.2 K/mm3 (0.0-0.4); Eosinophils % 2.4 % (0.1-12.0); Hematocrit 44.2 % (37.0-47.0); Hemoglobin 14.1 g/dL (12.2-16.2); Lymphocytes # 2.3 K/mm3 (0.7-4.5); Lymphocytes % 30.5 % (10-50); Mean Corpuscular Hemoglobin 30.7 pg (27.0-31.2); Mean Corpuscular Volume 95.9 fl (81-99); Mean Platelet Volume 8.5 fl (7.4-10.4); Monocytes # 0.4 K/mm3 (0.1-1.0); Monocytes % 4.6 % (1.7-9.3); Neutrophils # 4.6 K/mm3 (1.8-7.8); Neutrophils % 61.3 % (37.0-80.0); Platelet Count 281 K/mm3 (142-424); Red Cell Distribution Width 12.8 % (11.5-17.5); White Blood Count 7.6 K/mm3 (4.8-10.8)
--- NOTE | 2023-06-08 19:58 | PC.NURSE ---
patient back from CT
[2023-06-08] MEDS: SODIUM CHLORIDE 0.9% 10ML SYR (RAD ONLY) 10 ML IV (20:02)
[2023-06-08] MEDS: 0.9 % SODIUM CHLORIDE 50 ML VIAL IV (20:02)
[2023-06-08] MEDS: IOPAMIDOL-370 (76%);100ML BOTTLE 100 ML IV (20:02)
--- NOTE | 2023-06-08 20:05 | ED_ITS ---
Discharge Plan Disposition Patient Disposition: Home, Self-Care Condition: Good Prescriptions Prescriptions: No Action famotidine [Pepcid AC] 10 mg tablet 10 mg PO DAILY phentermine [Adipex-P] 37.5 mg tablet 37.5 mg PO DAILY Qty: 30 0RF Rx Instructions: must administer 30 minutes before or 1-2 hours after breakfast Ozempic 0.25 mg or 0.5 mg(2 mg/1.5 mL) pen injector 0.3125 mg SQ WEEKLY Qty: 1.5 0RF prednisone 20 mg tablet 20 mg PO BID 5 Days Qty: 10 0RF azithromycin 250 mg tablet See Rx Instructions PO .COMPLEX Qty: 6 0RF Rx Instructions: take 500 mg today (day 1), then 250 mg for 4 days (days 2-5) metformin 500 mg Tablet Extended Release 24 Hr 250 mg PO BID Gvoke HypoPen 2-Pack 1 mg/0.2 mL auto-injector 1 mg SQ ONCE prazosin 1 mg capsule 1 mg PO HS PRN (Reason: Anxiety) Referrals Follow up/Referrals: WM Christiano Alberto MD [Primary Care Provider] - See instructions Activity Restrictions/Add. Instructions Additional Instructions/Restrictions: You were evaluated in the emergency department today. Please keep a close follow-up with neurology in the morning. Return to the emergency department for new or worsening symptoms. [facility] should be contacting you to schedule an appointment. Clinical Impressions Clinical Impression: Stroke-like symptom, Left sided numbness, Migraine Instructions Patient Instructions: DI for Migraine, DI for Stroke-Ischemic Discharge ED Provider: Cynthia Larson General Adult HPI General Chief complaint: Neuro Symptoms/Deficit Stated complaint: dizzy, blurred vision Time Seen by Provider: 06/08/23 19:39 Mode of Arrival: Ambulatory Source of Information: Patient Limitations: No Limitations Description of Symptoms (Recalled from ER Triage Doc. by RN): 47 F presents with for unilateral weakness, blurry vision, and numbness to her left side. This was a sudden onset at 1900, but patient's last known well was 1814 and confirmed by her spouse. Patient a/o x3, GCS 15. She has slight symptom improvement according to patient. Patient reports having several workups completed at for similar symptoms; however, this evening it was worse. History of Present Illness HPI narrative: This patient is a 47-year-old female with a history of prior CVA, vasculitis, MS, hyperinsulinemia, and hypoglycemia presenting to the emergency department for evaluation with concern for strokelike symptoms. According to the patient, she was driving home from work at 1815 and was completely normal, when she had sudden onset of left eye visual disturbance as well as left-sided numbness and tingling. She notes that this felt similar to prior stroke. She pulled over and called family, who urgently brought her in. She notes that she was feeling okay prior to that. She knows she has been having an intermittent issue with her eye over the last month or so, and she has had workup by ophthalmology and they are not sure why this is happening to her. The symptoms, however, were unusual for her. She notes that currently, her eye symptoms have returned to her visual baseline, but she still having some sensation of numbness and tingling on the left side. No other concerns or complaints noted at this time. Fingerstick blood glucose upon arrival is 90. Related Data Home Medications Medication Instructions Recorded Confirmed glucagon 1 mg/0.2 mL subcutaneous 1 mg SQ ONCE hyperinsulenemia 03/18/22 05/05/23 auto-injector (Gvoke HypoPen 2-Pack) metformin 500 mg tablet,extended 250 mg PO BID Diabetes 03/18/22 05/05/23 release 24 hr prazosin 1 mg capsule 1 mg PO HS PRN Anxiety 10/21/22 05/05/23 famotidine 10 mg tablet (Pepcid AC) 10 mg PO DAILY 05/05/23 05/05/23 Previous Rx's Medication Instructions Recorded semaglutide 0.25 mg or 0.5 mg (2 0.3125 mg (0.2338 mL) SQ WEEKLY 05/12/22 mg/1.5 mL) subcutaneous pen Diabetes #1.5 mL injector (Ozempic) phentermine 37.5 mg tablet 37.5 mg PO DAILY #30 tabs 05/05/23 (Adipex-P) azithromycin 250 mg tablet See Rx Instructions PO .COMPLEX #6 05/26/23 tabs prednisone 20 mg tablet 20 mg PO BID 5 days #10 tabs 05/26/23 Allergies Allergy/AdvReac Type Severity Reaction Status Date / Time ciprofloxacin [From Cipro] Allergy Severe THROAT Verified 05/05/23 13:09 SWELLS erythromycin base Allergy Severe THROAT Verified 05/05/23 13:09 [From Asif-Tab] SWELLS cephalexin Allergy Mild I-RASH Verified 05/05/23 13:09 Penicillins Allergy Mild I-RASH Verified 05/05/23 13:09 sulfamethoxazole Allergy Mild I-RASH Verified 05/05/23 13:09 [From Bactrim] trimethoprim [From Bactrim] Allergy Mild I-RASH Verified 05/05/23 13:09 pineapple Allergy Verified 05/05/23 13:09 [facility] Disclaimer: The information contained in this section may have been updated after the patient was seen, as this information can be updated by other users. Medical History Hiatal hernia Family history of ischemic heart disease before age 50 Discoloration of skin of lower leg Immune disorder Vasculitis Abnormal electrocardiogram [ECG] [EKG] Edema of both lower extremities History of COVID-19 Asthma History of stroke Allergies Hyperinsulinemia Surgical History H/O dilation and curettage History of endometrial ablation H/O breast biopsy H/O lumpectomy History of hysteroscopy History of laparoscopy History of abdominoplasty Hx of melanoma excision Hx of ovarian cystectomy History of surgical removal of ganglion cyst History of appendectomy History of section Family History Brother Family history of cancer Other Family history of atrial fibrillation Social History Smoking Status: Never smoker alcohol intake: current substance use type: denies use current occupational status: employed Travel in the last 8 weeks: None household members: significant other housing: house lives independently: Yes marital status: number of children: 2 education level: master's degree current occupational exposures/hazards: No caffeine: No special too needs: No agree to transfusion: No do you feel safe at home: Yes victim of physical abuse: No victim of emotional abuse: No victim of sexual abuse: No would you like helpful sources: No ROS Obtained: Yes All systems reviewed & no additional complaints except as documented Physical Exam General General appearance: alert and in no apparent distress Head Head exam: atraumatic and normocephalic Eye Eye exam: Present normal appearance, PERRL and EOMI ENT ENT exam: Present normal exam, normal oropharynx, mucous membranes moist and normal external ear exam Neck Neck exam: Present normal inspection, full ROM and trachea midline; Absent tenderness Chest Chest inspection: Present normal inspection and symmetric chest wall rise; Absent tenderness Respiratory Respiratory exam: Present normal lung sounds bilaterally; Absent respiratory distress, wheezes, stridor or accessory muscle use Cardiovascular Cardiovascular exam: Present regular rate and normal rhythm Abdominal Exam Abdominal exam: Present soft; Absent distention, tenderness or guarding Extremities Exam Extremities exam: Present normal inspection, full ROM and normal capillary refill; Absent tenderness or edema Back Exam Back exam: Present normal inspection and full ROM; Absent tenderness Neurological Exam Neurological exam: Present alert, oriented X3, CN II-XII intact, normal gait and motor sensory deficit Expanded Neurological Exam Patient oriented to: Present person, place and time Speech: Present fluid speech Cranial nerves: Normal: EOM function (II, III, IV, ), facial palsy (VII), spinal accessory function (XI) and tongue deviation (XII) and Abnormal Left: facial sensation (V) Cerebellar function: Normal: finger to nose and heel to johnson Motor strength - LUE: 5/5 Motor strength - RUE: 5/5 Motor strength - LLE: 5/5 Motor strength - RLE: 5/5 Upper motor neuron exam: Normal: cleo neglect and pronator drift Sensory exam upper extremity: Normal: light touch Sensory exam lower extremity: Normal: light touch Coma scale eye opening: Spontaneous Coma scale motor response: Obeys commands Coma scale verbal response: Oriented Coma scale total: 15 Comment: NIH scale of 1 for subjective sensory deficit on the left side of the face, but otherwise neuroexam is normal. Psychiatric Psychiatric exam: Present normal affect and normal mood Skin Skin exam: Present warm and dry Medical Decision Making Medical Records Medical records reviewed: Yes I reviewed the patient's medical records. [place] Inquiry Pt receiving controlled substance: No Vital Signs: 06/08/23 19:38 06/08/23 20:10 06/08/23 20:30 Temperature 98.4 F Temperature Source Oral Pulse Rate 89 86 Pulse Rate [Right] 101 H Respiratory Rate 20 Blood Pressure 125/71 127/73 Blood Pressure [Right Arm] 158/89 H Blood Pressure Mean [Right Arm] 112 Blood Pressure Source [Right Arm] Automatic Cuff Blood Pressure Position [Right Arm] Sitting 02 Sat by Pulse Oximetry 100 99 100 Oxygen Delivery Method Room Air 06/08/23 21:00 06/08/23 21:30 06/08/23 22:00 Temperature Temperature Source Pulse Rate 92 H 94 H 90 Pulse Rate [Right] Respiratory Rate Blood Pressure 132/81 135/84 115/76 Blood Pressure [Right Arm] Blood Pressure Mean [Right Arm] Blood Pressure Source [Right Arm] Blood Pressure Position [Right Arm] 02 Sat by Pulse Oximetry 97 99 98 Oxygen Delivery Method 06/08/23 22:30 Temperature Temperature Source Pulse Rate 81 Pulse Rate [Right] Respiratory Rate Blood Pressure 123/78 Blood Pressure [Right Arm] Blood Pressure Mean [Right Arm] Blood Pressure Source [Right Arm] Blood Pressure Position [Right Arm] 02 Sat by Pulse Oximetry 99 Oxygen Delivery Method Lab Data Lab results reviewed: Yes I reviewed the patient's lab results. Lab Results 06/08/23 19:49: WBC 7.6, RBC 4.60, Hgb 14.1, Hct 44.2, MCV 95.9, MCH 30.7, MCHC 32.0, RDW 12.8, Plt Count 281, MPV 8.5, Neut % (Auto) 61.3, Lymph % (Auto) 30.5, [place] % (Auto) 4.6, Eos % (Auto) 2.4, Baso % (Auto) 1.2, Neut # (Auto) 4.6, Lymph # (Auto) 2.3, [place] # (Auto) 0.4, Eos # (Auto) 0.2, Baso # (Auto) 0.1, PT 9.9 L, INR 0.91, APTT 26.0, Sodium 141, Potassium 3.9, Chloride 107, Carbon Dioxide 27, Anion Gap 10.9, BUN 11, Creatinine 0.80, Estimated Creat Clear 88, Estimated GFR 76, Est GFR ( Amer) 92, Glucose 108 H, Calcium 9.6, Total Bilirubin 0.3, AST 32, ALT 22, Alkaline Phosphatase 63, Troponin I < 0.01, Total Protein 7.3, Albumin 4.2, Globulin 3.1, Albumin/Globulin Ratio 1.4, Triglycerides 135, Cholesterol 184, LDL Cholesterol Direct 92.35 L, VLDL Cholesterol 27, HDL Cholesterol 63 H, Cholesterol/HDL Ratio 2.9 06/08/23 19:49 06/08/23 19:49 Orders (Tests/Meds): ED MEDICATIONS Generic Name Dose Route Start Last Admin Trade Name Freq PRN Reason Stop Dose Admin Lactated Ringer's 1,000 mls @ 999 mls/hr 06/08/23 21:46 06/08/23 21:53 Lactated Ringer's 1000 Ml Bag IV 06/08/23 22:46 999 mls/hr .Q1H1M ONE Administration Sodium Chloride 10 ml 06/08/23 19:46 Sodium Chloride 0.9% 10ml Flush Syringe IV 07/08/23 19:45 NEEDED PRN Maintain IV Site Discontinued Medications Generic Name Dose Route Start Last Admin Trade Name Freq PRN Reason Stop Dose Admin Iopamidol 100 ml 06/08/23 20:01 06/08/23 20:02 Iopamidol-370 (76%);100ml Bottle IV 06/08/23 20:02 100 ml ONCE ONE Administration Ketorolac Tromethamine 15 mg 06/08/23 21:46 06/08/23 21:53 Ketorolac 30mg/Ml Vial IV 06/08/23 21:47 15 mg ONCE ONE Administration Sodium Chloride 50 ml 06/08/23 20:01 06/08/23 20:02 0.9 % Sodium Chloride 50 Ml Vial IV 06/08/23 20:02 50 ml ONCE ONE Administration Sodium Chloride 10 ml 06/08/23 20:01 06/08/23 20:02 Sodium Chloride 0.9% 10ml Syr (Rad Only) IV 06/08/23 20:02 10 ml ONCE ONE Administration ORDERS Category Date Time Status CT angio head Stat Cat Scan 06/08/23 19:[address] angio neck Stat Cat Scan 06/08/23 19:[address] head/brain wo con Stat Cat Scan 06/08/23 19:48 Completed XR chest portable Stat Exams 06/08/23 19:47 Completed Activated Partial Thrombo Time Stat Lab 06/08/23 19:49 Completed Complete Blood Count Auto Diff Stat Lab 06/08/23 19:49 Completed Comprehensive Metabolic Panel Stat Lab 06/08/23 19:49 Completed Lipid Panel Stat Lab 06/08/23 19:49 Completed Prothrombin Time INR Stat Lab 06/08/23 19:49 Completed Troponin I Q3H Lab 06/08/23 23:00 Ordered Troponin I Q3H Lab 06/09/23 02:00 Ordered Troponin I Stat Lab 06/08/23 19:49 Completed Urinalysis and Microscopic Stat Lab 06/08/23 19:47 Ordered ECG Data Tracing #1: I reviewed this ECG and interpreted as documented below: Normal sinus rhythm with a ventricular rate of 84 bpm. Motion artifact limits baseline evaluation, however patient does not have any concerning findings for STEMI. Normal axis and intervals. Medical Decision Narrative: In summary, this patient is a 47-year-old female presenting to the Emergency Department for evaluation of strokelike symptoms with concern for left eye visual changes and left-sided numbness/tingling. Differential diagnoses considered include but are not limited to CVA, hypoglycemia, intracranial hemorrhage, intracranial mass, anxiety, TIA, MS flare. Ruling out the most morbid conditions drove assessment. On exam, the patient is alert and is nontoxic-appearing. Vitals are reassuring on cardiac telemetry. She has an NIH stroke scale of 1 for subjective decrease sensation of the left face, but otherwise neuroexam is reassuring. It is also reassuring that the patient is continuing to have improvement in her symptoms, and her vision has returned to her baseline. Given patient presents within tPA window, decision was made to stroke alert the patient and take her emergently for CT scan and CTAs. This imaging was forwarded to [facility] for neuroradiology interpretation. Dr. Motta noted no LVO after interactive discussion. Workup included CBC, CMP, troponin, PT, PTT, chest x-ray, and EKG as well. I independently interpreted CT scans prior to the radiologist read and noted no obvious acute hemorrhage. Please see their read for final interpretation. Radiology did note concerns for a right ICA 4 mm saccular aneurysm that does not have evidence for leak or rupture, which he verified over the phone with me after interactive discussion. I did review patient's prior MRI from 05/26/2023, and she did not have an aneurysm noted at that time. I doubt this is clinically significant, but will call consult with neurology at [facility] for further evaluation. Labs were obtained that demonstrated no significantly concerning abnormalities. Fingerstick blood glucose was 90. On lab evaluation, electrolytes are within acceptable range, and troponin is undetectable. No significant leukocytosis or other concern. On reassessment, patient continues to have left-sided sensory disturbance, however she otherwise has no neurologic complaints or concerns. Exam is unchanged. Vitals are reassuring. I called and had an interactive discussion with Dr. Curry with neurology at the [facility] who advised that the aneurysm is not concerning and should not be causing the symptoms, and it likely was not seen on the MRI given size and the fact that the MRI was noncontrasted. She advised that patient symptoms closely fit picture of complex migraine as opposed to stroke. She advised treatment with migraine cocktail. She also advised close follow-up outpatient in clinic, which they we will help arrange. She agrees no intervention such as tPA or thrombectomy given no LVO and low NIH with no devastating injury. I had and after discussion with the patient who advised that she would be okay with trying the Toradol component of a migraine cocktail as well as fluids, but she wants to defer any antiemetics, steroids, or other medications. Patient was given IV Toradol with some improvement in her numbness and tingling. Ultimately, I had a long discussion with the patient regarding disposition. She has an appointment with neurology in the morning at 715. Advised we could admit her for MRI for further stroke/TIA workup, however given that she has this appointment in the morning, she does not want to miss it and would therefore like to be discharged home to follow-up with neurology. I gave her strict return precautions that should she get worsening symptoms or any new concerns throughout the night, she should just come back to the ED right away. She was discharged in stable condition after all questions were answered. Critical Care Critical Care Time Critical Care Time: No
[2023-06-08 20:06] LABS: Chloride 107 mmol/L (98-107)
[2023-06-08 20:07] LABS: Potassium 3.9 mmoL/L (3.5-5.1); Sodium 141 mmol/L (136-145)
[2023-06-08 20:08] LABS: INR 0.91 (0.9-1.1); Prothrombin Time 9.9 seconds (10.1-12.5)
[2023-06-08 20:09] LABS: Alanine Aminotransferase 22 U/L (12-78); Aspartate Amino Transferase 32 U/L (14-36); Blood Urea Nitrogen 11 mg/dl (7-17); Cholesterol 184 mg/dl (140-200); Creatinine Clearance Estimated 88 mL/min (50-200); Estimated Glomerular Filt Rate 76 ml/min (>60); GFR (African American) 92 ML/MIN (>60); HDL Cholesterol 63 mg/dl (40-60); Triglycerides 135 mg/dl (30-150); VLDL Cholesterol 27 mg/dL (0-40)
[2023-06-08 20:10] LABS: Albumin Level 4.2 g/dl (3.5-5.0); Albumin/Globulin Ratio 1.4 (1.1-1.8); Alkaline Phosphatase 63 U/L (38-126); Anion Gap 10.9 mEq/L (5-15); Bilirubin,Total 0.3 mg/dl (0.2-1.3); Calcium 9.6 mg/dl (8.4-10.2); Carbon Dioxide 27 mmol/L (22.0-30.0); Globulin 3.1 g/dL (1.3-3.2); Glucose 108 mg/dl (74-100); Total Protein,Serum 7.3 g/dl (6.3-8.2)
[2023-06-08 20:12] LABS: Chol/HDL Ratio 2.9 (1-3.5)
[2023-06-08 20:20] LABS: Direct LDL Cholesterol 92.35 mg/dL (100-129)
[2023-06-08 20:24] LABS: Troponin I < 0.01 ng/ml (0.00-0.034)
--- NOTE | 2023-06-08 21:08 | PC.NURSE ---
On phone with [facility] transfer, Dr. Dinora Curry head of stroke team to speak with Dr. Larson
--- NOTE | 2023-06-08 21:09 | ECG_ITS ---
APPROVED REPORT Exam: Resting ECG HR:84 bpm ECG Measurements Heart Rate 84 AXES VT 145 P 44 QRSd 96 QRS 64 QT 355 T 28 QTc 396 Conclusion SINUS RHYTHM Motion artifact makesit is difficult to discern baseline, however there is no obvious acute STEMI. No obvious acute discernible ST changes. Normal axis and intervals. Electronically signed by : JAZMINE WEBBER, 06/08/2023 23:03:16
--- NOTE | 2023-06-08 21:22 | PC.NURSE ---
Still waiting for callback from [facility]
--- NOTE | 2023-06-08 21:37 | PC.NURSE ---
Dr. Larson on phone with Dr. Curry, stroke team
[2023-06-08] MEDS: LACTATED RINGERS 1000ML 1,000 ML 999 ML IV (21:53)
[2023-06-08] MEDS: KETOROLAC 30MG/ML VIAL 15 MG IV (21:53)
--- NOTE | 2023-06-08 22:26 | PC.NURSE ---
pt reports numbness is slightly better at this time
== END 2023-06-08 23:03 | disposition home or self-care (01) ==
PROVIDERS: Emergency Provider Emergency Medicine; PCP Family Medicine
DX: G43.909 Migraine, unspecified, not intractable, without status migrainosus (principal); R29.818 Other symptoms and signs involving the nervous system; H53.8 Other visual disturbances; R20.2 Paresthesia of skin; I77.6 Arteritis, unspecified; Z86.73 Personal history of transient ischemic attack (TIA), and cerebral infarction without residual deficits; E16.1 Other hypoglycemia
CPT/HCPCS: 70450; 70496; 70498; 71045; 80053; 80061; 84484; 85025; 85610; 85730; 93005; 96361; 96374; 99285; Q9967

== ENCOUNTER 2023-07-21 12:40 | Outpatient (CLI) | payer BC, SELFPAY ==
--- NOTE | 2023-07-21 12:59 | MM_ITS ---
PROCEDURE INFORMATION: Exam: MG Left Diagnostic Breast Tomosynthesis Exam date and time: 07/21/2023 12:46 PM Age: 47 years old Clinical indication: Short-term radiographic followup; Left breast; calcifications TECHNIQUE: Imaging protocol: Left Diagnostic tomosynthesis and 2D mammography including computer-aided detection (CAD) when performed. Unilateral or bilateral exam. COMPARISON: 1. MG REPEAT VIEW MM 12/16/2022 1:57 PM 2. MG MM DIG MAMM DX UNILAT LT CAD 10/21/2022 1:09 PM FINDINGS: MAMMOGRAPHY: Breast composition: The breasts are extremely dense, which lowers the sensitivity of mammography. Breast mammogram findings: Digital diagnostic magnification views of the posterior left upper outer quadrant demonstrate a stable cluster of microcalcifications. No new microcalcifications are seen. IMPRESSION: Stable calcifications in the left breast compared to prior mammograms dating back to and including 10/07/2022. A six-month follow-up diagnostic bilateral mammogram with magnification views of the left breast are recommended in October 2023 to ensure stability over time ASSESSMENT: BI-RADS Category 3: Probably benign.
== END 2023-07-21 23:59 | disposition home or self-care (01) ==
PROVIDERS: PCP Family Medicine; Visit Provider Nurse Practitioner Women's Health
DX: R92.2 Inconclusive mammogram (principal)
CPT/HCPCS: 77061; 77065; G0279

== ENCOUNTER 2023-09-07 10:04 | Outpatient (CLI) | payer BC, SELFPAY ==
--- NOTE | 2023-09-07 10:09 | NM_ITS ---
FINAL REPORT TECHNIQUE: Sequential anterior images were obtained after the ingestion of 2 whole eggs, 2 pieces of toast, and water radiolabeled with 0.51 mCi technetium 99M sulfur colloid. CLINICAL HISTORY: EARLY SATIETY 10:25am 0.51 mci tc sulfur colloid inj into 2 whole eggs, 2 pc of toast and water COMPARISON: None FINDINGS: GASTRIC EMPTYING SCAN Static images show normal emptying of the stomach into the small bowel. Based on the time activity curve, the estimated half-emptying time is abnormally prolonged at 125 minutes. IMPRESSION: Abnormally prolonged gastric emptying study. Reviewed, Interpreted and Dictated by Neal Jean III, MD Transcribed by Anastasiya Dozier Authenticated and . [facility]
[2023-09-07] MEDS: TC99M SULF.COLLOID;1 DOSE (UP TO 20 MCI) IV (10:26)
== END 2023-09-07 23:59 | disposition home or self-care (01) ==
LOC: RAD 10:04
PROVIDERS: PCP Family Medicine; Visit Provider Nurse Practitioner Family
DX: R68.81 Early satiety (principal)
CPT/HCPCS: 78264; A9541

== ENCOUNTER 2023-10-16 08:03 | Outpatient (CLI) | payer BC, SELFPAY ==
--- NOTE | 2023-10-16 08:14 | XR_ITS ---
PROCEDURE INFORMATION: Exam: XR Chest Exam date and time: 10/16/2023 8:17 AM Age: 48 years old Clinical indication: Cough and other: Cough, congestion w/yellowish sputum; Patient HX: Cough with congestion, yellowish sputum TECHNIQUE: Imaging protocol: Radiologic exam of the chest. Views: 2 views. COMPARISON: CR XR CHEST PORTABLE 06/08/2023 7:52 PM FINDINGS: Lungs: Unremarkable. No consolidation. Pleural spaces: Unremarkable. No pleural effusion. No pneumothorax. Heart/Mediastinum: Unremarkable. No cardiomegaly. Bones/joints: Unremarkable. IMPRESSION: No acute findings.
== END 2023-10-16 23:59 | disposition home or self-care (01) ==
PROVIDERS: PCP Nurse Practitioner Family; Visit Provider Nurse Practitioner Family
DX: J06.9 Acute upper respiratory infection, unspecified (principal)
CPT/HCPCS: 71046

== ENCOUNTER 2024-03-03 08:05 | Outpatient (CLI) | payer BC, SELFPAY ==
[2024-03-03] MEDS: ALBUTEROL 0.083% 2.5 MG/3 ML NEB IH (09:06)
== END 2024-03-03 23:59 | disposition home or self-care (01) ==
LOC: RT 08:07
PROVIDERS: Visit Provider Internal Medicine Pulmonary Disease
DX: R06.09 Other forms of dyspnea (principal)
CPT/HCPCS: 94060; 94618; 94726; 94729; J7613

== ENCOUNTER 2025-02-12 17:27 | Outpatient (CLI) | payer BC, SELFPAY ==
--- OUTSIDE RECORDS SUMMARY | 2025-02-07 14:30 | XMS_ITS | Encounter Summary ---
Author Organization [facility] Address [address] [place] [address] Care Team Providers Care Correspondence Coordinator Name Role Phone Adelfo Alberto MD Primary Care Provider [phone] Reason for Visit * Reason Comments Follow-up Inflammatory arthritis Encounter Details Date Type Department Care Team (Late st Contact Info) Description 02/07/2025 2:30 PM EST Office Visit [facility] [address] [place] [address] Shirley Delgado MD [address] [facility] [address] [place] [address] Inflammatory arthritis (Primary Dx); Raynaud's phenomenon without gangrene; Non-caseating granuloma; CORIN positive; Blurring of vision; Hx of one miscarriage; Dry eyes; Cervical lymphadenopathy Social History Tobacco Use Types Packs/Day Years Used Date Smoking Tobacco: Former Cigarettes 0.3 6 Passive Smoke Exposure: Past Smokeless Tobacco: Never Alcohol Use Standard Drinks/Week Comments Not Currently 0 (1 standard drink = 0.6 oz pur e alcohol) ocassionally PHQ-2 Answer Date Recorded Patient Health Questionnaire-2 Score 0 02/07/2025 PHQ-9 Answer Date Recorded Patient Health Questionnaire-9 Score 3 02/07/2025 Comments Unknown Sex and Gender Information Value Date Recorded Sex Assigned at Not on file Legal Sex Female 7:33 PM EDT Gender Identity Not on file Sexual Orientation Not on file documented as of this encounter Last Filed Vital Signs Vital Sign Reading Time Taken Comments Blood Pressure 118/78 02/07/2025 2:25 PM EST Pulse 93 02/07/2025 2:25 PM EST Temperature 36.8 C (98.2 F) 02/07/2025 2:25 PM EST Respiratory Rate 16 02/07/2025 2:25 PM EST Oxygen Saturation 96% 02/07/2025 2:25 PM EST Inhaled Oxygen Concentration - - Weight 73.7 kg (162 lb 7.7 oz) 02/07/2025 2:25 P M EST Height 149.9 cm (4' 11 ) 02/07/2025 2:25 PM EST Body Mass Index 32.82 02/07/2025 2:25 PM EST documented in this encounter Functional Status * Over the past 2 weeks, how often have you been bothered by any of the following problems? Question Answer Date of Assessment Author Little interest or pleasure in doing things Not at all 02/07/2025 2:27 PM EST Oscar Atkins Feeling down, depressed, or hopeless Not at all 02/07/2025 2:27 PM EST Oscar Atkins Patient Health Questionnaire -2 Score 0 02/07/2025 2:27 PM EST Oscar Atkins * Question Answer Date of Assessment Author Trouble falling or staying asleep, or sleeping too much Several days 02/07/2025 2:27 PM EST Oscar Atkins Feeling tired or having little energy More than half the days 02/07/2025 2:27 PM EST Jazz Atkins Poor appetite or overeating Not at all 02/07/2025 2:27 PM EST Oscar Atkins Feeling bad about yourself - or that you are a failure or have let yourself or your family down Not at all 02/07/2025 2:27 PM EST Oscar Atkins Trouble concentrating on things, such as reading the newspaper or watching television Not at all 02/07/2025 2:27 PM EST Oscar Atkins Moving or speaking so slowly that other people could have noticed. Or the opposite - being so fidgety or restless that you have been moving around a lot more than usual Not at all 02/07/2025 2:27 PM EST Oscar Atkins Thoughts that you would be better off or hurting yourself in some way Not at all 02/07/2025 2:27 PM Oscar Baker Patient Health Questionnaire-9 Score 3 02/07/2025 2:27 PM EST Sindi Atkins * How difficult have these problems made it for you to do your work, take care of things at home, or get along with other people? Answer Date of Assessment Author Not difficult at all 02/07/2025 2:27 PM EST Jazz Saxena documented as of this encounter Miscellaneous Notes * Progress Notes - Shirley Delgado MD - 02/07/2025 2:30 PM EST Images from the original note were not included. Rheumatology follow-up note Yasmin Hernandez is a 49 y.o. female is here for follow-up of positive CORIN, polyarthralgia, diplopia, sicca symptoms and previous history of biopsy with noncaseating granuloma. Patient has been taking methotrexate 15 mg every week since February 2024, she reports significant improvement in her joint pain especially hands. There were some occasions where she had some mild flu or runny nose and she was also around people who had COVID. Patient had to hold her methotrexate in those times. She can definitely see a huge difference where she is unable to take methotrexate that her joints start to hurt. Patient also reports that her symptoms are slightly worse with the winter but she is doing be tter in the summer. Summary of the visit in February 2024: Patient here for follow-up of inflammatory arthritis with the focus score of 0.5 on lip biopsy.Further testing which was performed included serology for Sjogren's, antiphospholipid antibody syndrome, lupus etcetera was negative. Results of the labs, imaging and biopsy of the lip were discussed with the patient. Patient continues to have significant joint pain especially in her hands, feet and back, she reports morning stiffness for 1-1/2 hour. Patient is started on 15 mg of methotrexate every week along with folic acid 1 mg daily. History as per initial consult in October 2023: Patient presented for evaluation of positive CORIN. Patient reports that she was found to have positive CORIN around 2004, at the same time she was also given the diagnosis of multiple sclerosis and she was placed on some oral medication for only 3 months.Since that time she has not been on any medications. Lately in 2023 around April she had an episo de of blurring of vision especially reading or looking at the computer was very difficult. She had a similar episode of blurring of vision along with some numbness in her left side of the body in June 2023. Both these events led to further evaluation by Ophthalmology/neurology. Patient is being worked up for couple of diseases by Neuro-Ophthalmology and Neurology but in the meantime she was referred to Rheumatology for further evaluation given the history of positive CORIN. Patient also reports multiple other symptoms including dry eyes, Raynaud's, dry cough, gastroparesis and history of hypoglycemia. Patient also reports history of 1 miscarriage which was 19-week-old. Patient also reports history of cervical lymphadenopathy which was biopsied in 2014 and found to have noncaseating granulomas, patient reports there was no follow-up on that. Patient also reports having an abnormal chest x-ray 1 week ago. Patient does not know her family history, as she is distant from her family members . She denies any history of autoimmune diseases in her children. Patient also reports having high insulin levels and being worked up for insulinoma which was negative. Patient also complains of a skin rash on her bilateral arms on the external side. Patient also endorses history of 1 stroke in the past. Patient also endorses morning stiffness for couple of hours. Denies any history of seizures, photosensitive skin rash, history of ulcers in the mouth or nose, pericarditis, pericardial effusion, pleural effusion, history of blood clots like DVT or pulmonary embolism. Subjective Review of systems: 14 point ROS was done, negative other than mentioned in HPI. Objective Allergies Allergen Reactions Cephalexin Anaphylaxis and Hives Ciprofloxacin Anaphylaxis and Unknown - Patient states they do not know rxn details Orphenadrine Angioedema Pineapple Extract Anaphylaxis Sulfa Drugs Unknown - Patient states they do not know rxn details and Angioedema Penicillins Hives and Unknown - Patient states they do not know rxn details Amoxicillin-Pot Clavulanate Rash Erythromycin Rash and Unknown - Patient states they do not know rxn details Pineapple Other - please document in the comment field Sulfamethoxazole-Trimethoprim Other - please document in the comment field angioedema Trimethoprim Rash Past Medical History: Diagnosis Date ADD (attention deficit disorder) Allergic Ankylosing spondylitis of site in spine ([facility]/HCC) Asthma 2005 Cancer ([facility]) Chronic lymphadenitis, except mesenteric Granulomatous lymphadenitis Cluster headache Dry eyes Glucose intolerance Memory loss Migraine Numbness Obesity 2010 Other organ or system involvement in systemic lupus erythematosus ([facility]) Lupus vasculitis Peripheral neuropathy 2005 Personal history of other diseases of the nervous system and sense organs History of neuropathy Personal history of transient ischemic attack (TIA), and cerebral infarction without residual deficits History of stroke Raynaud phenomenon Sarcoidosis Scleroderma Shingles Spinal stenosis Stroke ([facility]) Syncope TIA (transient ischemic attack) Vision loss Weakness of limb Past Surgical History: Procedure Laterality Date APPENDECTOMY N/A Appendectomy from [facility] SECTION, LOW TRANSVERSE N/A Section from [employer] COLONOSCOPY MELANOMA EXCISION 01/06/2018 right thigh OTHER SURGICAL HISTORY Right 2019 Laparoscopic Aspiration Right Ovary from [employer] TUBAL LIGATION N/A Tubal Ligation from [employer] UTERINE MYOMECTOMY N/A Uterine Myomectomy Laparoscopic Ablation from [employer] Family History Problem Relation Name Age of Onset Cataracts Mother Tea Cardiac disorder Mother Tea Parkinsonism Mother Tea Alcohol abuse Mother Tea Drug abuse Mother Tea 20 - 29 Arthritis Mother Tea Cataracts Father Juanjo nicholas COPD Father Juanjo nicholas Heart attack Father Juanjo nicholas Diabetes Father Juanjo warnere Stroke Father Juanjo warnere 80 - 99 Neuropathy Father Juanjo warnere Heart disease Father Juanjo warnere Diabetes type II Father Juanjo nicholas Stroke Paternal Grandmother Mary Dementia Paternal Grandmother Mary Alzheimer's disease Paternal Grandmother Mary Diabetes type II Brother Pa nicholas Diabetes type II Sister Diya clifton Heart disease Brother Tito nicholas 30 - 39 Diabetes type II Brother Tito nicholas Alcohol abuse Son Jay Arthritis Brother John Cancer Brother Jett Cancer Mother's Sister Brianna Cancer Mother's Sister Sayda Diabetes Sister Diya Diabetes Brother Rahul Social History Tobacco Use Smoking status: Former Current packs/day: 0.25 Average packs/day: 0.3 packs/day for 6.0 years (1.5 ttl pk-yrs) Types: Cigarettes Passive exposure: Past Smokeless tobacco: Never Substance Use Topics Alcohol use: Not Currently Comment: ocassionally MEDICATIONS: Current Outpatient Medications on File Prior to Visit Medication Sig Dispense Refill Airsupra 90-80 MCG/ACT aerosol INHALE TWO (2) PUFFS EVERY SIX (6) HOURS NEEDED FOR SHORTNESS OF BREATH OR WHEEZING albuterol (2.5 MG/3ML) 0.083% nebulizer solution albuterol (ProAir HFA) 108 (90 Base) MCG/ACT inhaler aspirin (Tierra Low Dose) 81 MG chewable tablet snhdufbjsv-djgqqbpawiqov-wnhqqngm 50-325-40 MG tablet TAKE ONE TABLET BY MOUTH AT ONSET of HEADACHE; MAY REPEAT DOSE in 6 hours if needed Continuous Blood Gluc President & Founder (Mirifice G6 account development manager) device USE DIRECTED TO TEST BLOOD GLUCOSE LEVEL Continuous Blood Gluc Sensor (Mirifice G6 Sensor) misc USE DIRECTED TO TEST BLOOD GLUCOSE LEVEL Continuous Blood Gluc Transmit (Mirifice G6 transmitter) misc USE DIRECTED TO TEST BLOOD GLUCOSE LEVEL EPINEPHrine (Epipen) 0.3 MG/0.3ML injection syringe INJECT 0.3 MG (0.3 ML) INTRAMUSCULARLY EVERY FOUR (4) HOURS NEEDED FOR ANAPHYLAXIS famotidine (Pepcid) 20 MG tablet Take by mouth 1 (one) time each day. fluticasone (Flonase) 50 MCG/ACT nasal spray Gvoke HypoPen 2-Pack 1 MG/0.2ML solution auto-injector INJECT 1 MG SUBCUTANEOUSLY ONCE DIRECTED ipratropium-albuterol (Duo-Neb) 0.5-2.5 mg/3 mL nebulizer solution THREE (3) ML INHALED FOUR TIMES A DAY NEEDED FOR SHORTNESS OF BREATH OR WHEEZING metFORMIN (Glucophage) 500 MG tablet Take 0.5 tablets (250 mg) by mouth Daily. MULTIPLE VITAMIN-FOLIC ACID PO Nurtec 75 MG tablet dispersible TAKE ONE (1) TABLET BY MOUTH EVERY OTHER DAY phentermine (Adipex-P) 37.5 MG tablet (Patient taking differently: as needed.) polyethylene glycol (Miralax) 17 g packet Take 17 g by mouth 1 (one) time each day. (Patient takingdifferently: Take 17 g by mouth as needed.) prazosin (Minipress) 1 MG capsule Take 1 capsule (1 mg) by mouth if needed. [DISCONTINUED] folic acid (Folvite) 1 MG tablet Take 1 tablet by mouth daily. [DISCONTINUED] methotrexate 2.5 MG tablet TAKE SIX (6) TABLETS BY MOUTH EVERY WEEK albuterol 108 (90 Base) MCG/ACT inhaler (Patient not taking: Reported on 02/07/2025) azithromycin (Zithromax) 250 MG tablet TAKE 500 MG TODAY (DAY 1), THEN 250 MG FOR FOUR (4) DAYS (DAYS 2-5) fluticasone-vilanterol (Breo Ellipta) 100-25 MCG/INH inhaler As needed (Patient not taking: Reported on 02/07/2025) furosemide (Lasix) 20 MG tablet As needed (Patient not taking: Reported on 05/05/2023) hyoscyamine (Levsin) 0.125 MG SL tablet DISSOLVE ONE TABLET UNDER THE TONGUE EVERY 6 HOURS NEEDED (Patient not taking: Reported on 05/05/2023) Linzess 290 MCG capsule TAKE 1 CAPSULE BY MOUTH EACH MORNING (Patient not taking: Reported on 02/07/2025) nitroglycerin (Nitrostat) 0.4 MG SL tablet if needed. omeprazole (PriLOSEC) [address] capsule As needed (Patient not taking: Reported on 05/05/2023) potassium chloride ER (Micro-K) 10 MEQ ER capsule Take with lasix As needed (Patient not taking: Reported on 05/05/2023) semaglutide (Ozempic, 0.25 or 0.5 MG/DOSE,) 2 MG/1.5ML solution pen-injector inj. pen (Patient not taking: Reported on 01/14/2024) No current facility-administered medications on file prior to visit. Results: Appointment on 03/02/2024 Component Date Value Direct Bilirubin, Plasma 03/02/2024 <0.2 Alkaline Phosphatase, Pl* 03/02/2024 67 Total Bilirubin, Plasma 03/02/2024 0.4 Albumin, Plasma 03/02/2024 4.2 Total Protein 03/02/2024 7.1 ALT, Plasma 03/02/2024 33 AST, Plasma 03/02/2024 29 Hepatitis C Antibody 03/02/2024 Negative Hepatitis B Surf Antigen 03/02/2024 Negative Quantiferon TB Gold Plus* 03/02/2024 Negative TB Nill Value 03/02/2024 0.0795 TB Antigen 1 03/02/2024 0.0067 TB Antigen 2 03/02/2024 0.0295 TB Mitogen 03/02/2024 9.9205 Currently available Rheumatologic testing values noted below: Lab Results Component Value Date CORIN <1:80 10/27/2023 Lab Results Component Value Date RODRIGUE 44 10/27/2023 SCL70 1 10/27/2023 C3 137 10/27/2023 C4 21 10/27/2023 Physical Exam 05/04/2017 1:23 PM 03/25/2021 2:22 PM 10/27/2023 9:12 AM 01/14/2024 9:08 AM 03/02/2024 7:55 AM 03/02/2024 8:53 AM 02/07/2025 2:25 PM Vitals Systolic 143 133 128 138 136 128 118 Diastolic 71 83 84 94 86 83 78 Heart Rate 83 96 76 87 82 76 93 Temp 36.7 C 36.7 C 36.7 C 36.8 C Resp 16 16 16 Height (cm) 149.9 cm 149.9 cm 149.9 cm 149.9 cm 149.9 cm 149.9 cm 149.9 cm Weight (kg) 66.23 kg 64.4 kg 69.2 kg 67.132 kg 69 kg 70.1 kg 73.7 kg BMI 29.49 kg/m2 28.68 kg/m2 30.81 kg/m2 29.89 kg/m2 30.72 kg/m2 31.21 kg/m2 32.82 kg/m2 BSA (m2) 1.66 m2 1.64 m2 1.7 m2 1.67 m2 1.69 m2 1.71 m2 1.75 m2 Visit Report Report Report Report Report Report Physical Exam HENT: Head: Normocephalic and atraumatic. Nose: Nose normal. Mouth/Throat: Pharynx: Oropharynx is clear. Eyes: General: Right eye: No discharge. Left eye: No discharge. Cardiovascular: Rate and Rhythm: Normal rate. Heart sounds: No friction rub. Pulmonary: Effort: Pulmonary effort is normal. Breath sounds: Normal breath sounds. Abdominal: Palpations: Abdomen is soft. Tenderness: There is no abdominal tenderness. Musculoskeletal: General: No tenderness. Right shoulder: Normal. Left shoulder: Normal. Right upper arm: Normal. Left upper arm: Normal. Right elbow: Normal. Left elbow: Normal. Right forearm: Normal. Left forearm: Normal. Right wrist: Normal. Left wrist: Normal. Right hand: Normal. Left hand: Normal. Skin: General: Skin is warm and dry. Comments: Abnormal nail fold capillary microscopy. Patient has dropout of the capillaries in all 10digits. Neurological: Mental Status: She is alert and oriented to person, place, and time. Psychiatric: Mood and Affect: Mood normal. Behavior: Behavior normal. Assessment Diagnosis Plan 1. Inflammatory arthritis folic acid (Folvite) 1 MG tablet methotrexate 2.5 MG tablet CBC and differential Comprehensive metabolic panel 2. Raynaud's phenomenon without gangrene 3. Non-caseating granuloma 4. CORIN positive 5. Blurring of vision 6. Hx of one miscarriage 7. Dry eyes 8. Cervical lymphadenopathy Assessment/Plan 1. Inflammatory arthritis Patient does not have very convincing features of lupus but some of the historical findings are concerning for lupus including history of stroke in a very young patient around 2004, history of cervical lymphadenopathy, questionable photosensitive skin rash on her bilateral arms , history of morning stiffness for 1-1/2 hour and joint pain and swelling especially in the morning involving her hands,feet and back. Testing for antiphospholipid antibodies, lupus, complement levels, SSA, SSB, urine studies, CBC, CMP, testing for scleroderma including anti Scl 70, anticentromere, RNA polymerase 3 and peripheral labs for sarcoid are negative including vitamin D1, angiotensin-converting enzyme, lysozyme etcetera. CT of the chest does not report interstitial lung disease. Patient had a biopsy in the outside ENT clinic where she was found to have focus score of 0.5 whichdoes not qualify for Sjogren's at this point. She was also evaluated by Neurology and Ophthalmology and was not found to have multiple sclerosis. Her blurring of vision is intermittent. She is following Neurology and Ophthalmology. Given sicca symptoms although the focus score does not qualify for Sjogren's and history of granuloma on biopsy which were non caseating adopt differential includes Sjogren's and sarcoid. We will continue methotrexate, we will increase the dose from 15 mg to 20 mg every week as patient reports slight worsening with the change in weather. Patient would like to go back to 15 mg during summer time. Continue folic acid 1 mg daily. Patient lives far away and she will continue do her blood work every 3 months with her PCP. And roberta also send the lab reports to us. Risks and benefits including but not limited to risk of infection, bone marrow suppression, kidney injury, liver injury etc. were discussed with the patient. Patient verbalized understanding. It was also discussed with the patient that in case of infection, she should stop taking methotrexate and seek medical attention. Patient verbalized understanding 2. Blurring of vision Following Neurology/ophthalmology 3. Dry eyes Patient has been having dry eyes and dry mouth for a very long time she consistently uses eyedrops in her eyes every day multiple times. SSA, SSB negative, lip biopsy shows focus score of 0.5. 4. Non-caseating granuloma In 2015 patient underwent biopsy of the lymph node from her neck, it shows non caseating granulomas, report is available in epic. Patient denies having any further workup done or any treatment done for this. 5. Hx of one miscarriage History of 1 miscarriage, it was 19-week-old. Testing is negative for all for antibodies for antiphospholipid antibody syndrome. 6. Cervical lymphadenopathy 7. Raynaud's phenomenon without gangrene Along with the Raynaud's especially affecting her bilateral toes patient also has abnormal capillary nail fold microscopy in all 10 fingers. Testing is negative for Scl 70, RNA polymerase 3 and anticentromere. 8. Scleroderma (CMS/HCC) Combination of gastroparesis, Raynaud's phenomena, capillary dropout in all 10 fingers on capillarymicroscopy is raising suspicion for scleroderma. CT chest is negative for ILD . Patient reports having an echocardiogram done this year, patient will send us the report via [employer]. Serology negative for major antibodies for scleroderma for now 9. Hypoglycemia Already worked up for insulinoma by endocrinology previously. Counseling: diagnosis, lab results, treatment options, follow up plan, return instructions, and discussion of mental health issues Note to patient: The Century Cures Act makes medical notes like these available to patients inthe interest of transparency. However, be advised this is a medical document. It is intended as peer to peer communication. It is written in medical language and may contain abbreviations or verbiagethat are unfamiliar. It may appear blunt or direct. Medical documents are intended to carry relevant information, facts as evident, and the clinical opinion of the medical professional. The patient was counseled about diagnostic results, instruction for management, risk factors reduction, prognosis, compliance with visits and treatment, risks and benefits of treatments options. Prior notes (by external physicians) and results were reviewed by me with independent interpretation of labs and imaging. My note will be sent to PCP and other consulting physicians. Information regarding activities, treatments, and follow-up recommendations were provided to the patient/family member(s) present today who have shown recognition and demonstration of understanding of this information. Thank you for the consult and allowing us to participate in the care of this patient. Shirley Delgaod MD Manager Of Application Development Division of Rheumatology Department of Internal Medicine [facility] documented in this encounter Plan of Treatment Upcoming Encounters Date Type Department Care Team (Late st Contact Info) Description 02/11/2026 2:00 PM EST Office Visit [facility] Medicine Specialties [address] [place] [address] Shirley Delgado MD [address] [place] [address] Scheduled Orders Name Type Priority Associated Diagnoses Orde r Schedule CBC and differential Lab Routine Inflammatory arthritis every three months for 3 Occurrences starting 02/07/2025 until 08/08/2026 Comprehensive metabolic panel Lab Routine Inflammatory arthritis every three months for 3 Occurrences starting 02/07/2025 until 08/08/2026 documented as of this encounter Visit Diagnoses Diagnosis Inflammatory arthritis- Primary Unspecified inflammatory polyarthropathy Raynaud's phenomenon without gangrene Non-caseating granuloma CORIN positive Blurring of vision Hx of one miscarriage Dry eyes Unspecified tear film insufficiency Cervical lymphadenopathy Enlargement of lymph nodes documented in this encounter Additional Health Concerns Assessment Noted Time PHQ-9 Depression Total Score: 3 02/08/20 25 2:27 PM EST A fall risk assessment has been complete d for the patient 02/07/2025 2:27 PM EST A Body Mass Index follow-up plan has been documented for the patient 02/07/2025 3:28 PM EST documented as of this encounter Care Teams Correspondence Coordinator Relationship Specialty Start Date End Date Adelfo Alberto MD [address] [place], [place] [address] [address] PCP - General 10/16/24 documented as of this encounter
--- OUTSIDE RECORDS SUMMARY | 2025-02-12 17:31 | XMS_ITS | Encounter Summary ---
Author Organization Healthcare Address [address] [place] [address] Care Team Providers Care Shelter Advocate Name Role Phone Adelfo Alberto MD Primary Care Provider Encounter Details Date Type Department Care Team (Latest Contact Info) Description 02/07/2025 Travel Social History Tobacco Use Types Packs/Day Years [...] on file documented as of this encounter Functional Status * Over the past 2 weeks, how often have you been bothered by any of the following problems? Question Answer Date of Assessment Author Little interest or pleasure in doing things Not at all 02/07/2025 2:27 PM Oscar Baker Feeling down, depressed, or hopeless Not at all 02/07/2025 2:27 PM Oscar Baker Patient Health Questionnaire -2 Score 0 02/07/2025 2:27 PM Oscar Baker * Question Answer Date of Assessment Author Trouble falling or staying asleep, or sleeping too much Several days 02/07/2025 2:27 PM Oscar Baker Feeling tired or having little energy More than half the days 02/07/2025 2:27 PM Jazz Baker Poor appetite or overeating Not at all 02/07/2025 2:27 PM Oscar Baker Feeling bad about yourself - or that you are a failure or have let yourself or your family down Not at all 02/07/2025 2:27 PM Oscar Baker Trouble concentrating on things, such as reading the newspaper or watching television Not at all 02/07/2025 2:27 PM Oscar Baker Moving or speaking so slowly that other people could have noticed. Or the opposite - being so fidgety or restless that you have been moving around a lot more than usual Not at all 02/07/2025 2:27 PM Oscar Baker Thoughts that you would be better off or hurting yourself in some way Not at all 02/07/2025 2:27 PM Oscar Baker Patient Health Questionnaire-9 Score 3 02/07/2025 2:27 PM Sindi Baker * How difficult have these problems made it for you to do your work, take care of things at home, or get along with other people? Answer Date of Assessment Author Not difficult at all 02/07/2025 2:27 PM Jazz Villalta documented as of this encounter Plan of Treatment Upcoming Encounters Date Type Department Care Team (Late st Contact Info) Description 02/11/2026 2:00 PM EST Office Visit [facility] [address] [place] [address] Shirley Delgado MD [address] [place] [address] documented as of this encounter Visit Diagnoses Not on filedocumented in this encounter Additional Health Concerns Assessment Noted Time PHQ-9 Depression Total Score: 3 02/08/20 2:27 PM EST A fall risk assessment has been complete d for the patient 02/07/2025 2:27 PM EST A Body Mass Index follow-up plan has been documented for the patient 02/07/2025 3:28 PM EST documented as of this encounter Care Teams Shelter Advocate Relationship Specialty Start Date End Date Adelfo Ablerto MD [address] [place] [address] [place] [address] PCP - General 10/16/24 documented as of this encounter
--- OUTSIDE RECORDS SUMMARY | 2025-02-12 17:31 | XMS_ITS | Clinical Summary ---
Author Organization [facility] Address [address] [place] [address] Care Team Providers Care Croze Cutter Helper Name Role Phone Adelfo Alberto MD Primary Care Provider Allergies Active Allergy Reactions Criticality Noted Date Comments Amoxicillin-Pot Clavulanate Rash Low 07/24/2014 Cephalexin Anaphylaxis,Hives High 07/24/2014 Ciprofloxacin Anaphylaxis,Unknown - Patient states they do not know rxn details High 07/24/2014 Erythromycin Rash,Unknown - Patie nt states they do not know rxn details Low 07/24/2014 Orphenadrine Angioedema High 06/14/2023 Penicillins Hives,Unknown - Tamika ent states they do not know rxn details Medium 07/24/2014 Pineapple Other - please docum ent in the comment field Low 02/16/2023 Pineapple Extract Anaphylaxis High 05/07/2023 Sulfa Drugs Unknown - Patient states they do not know rxn details,Angioedema High 06/30/2016 Sulfamethoxazole-Trimethop rim Other - please document in the comment field Low 07/24/2014 angioedema Trimethoprim Rash Low 02/16/2023 Medications MULTIPLE VITAMIN-FOLIC ACID PO 07/01/19 17 Active albuterol (2.5 MG/3ML) 0.083% nebulizer solution 11/11/19 17 Active albuterol (ProAir HFA) 108 (90 Base) MCG/ACT inhaler 07/01/19 17 Active albuterol 108 (90 Base) MCG/ACT inhaler 07/20/19 21 Active aspirin (Tierra Low Dose) 81 MG chewable tablet 07/01/19 17 Active Continuous Blood Gluc Assembler Installer General (Dexcom G6 monotype keyboard operator) device USE DIRECTED TO TEST BLOOD GLUCOSE LEVEL 11/09/19 21 Active Continuous Blood Gluc Sensor (Dexcom G6 Sensor) misc USE DIRECTED TO TEST BLOOD GLUCOSE LEVEL 03/03/20 21 Active Continuous Blood Gluc Transmit (Dexcom G6 transmitter) misc USE DIRECTED TO TEST BLOOD GLUCOSE LEVEL 09/19/19 21 Active fluticasone-landy anterol (Breo Ellipta) 100-25 MCG/INH inhaler As needed 05/04/19 18 Active fluticasone (Flonase) 50 MCG/ACT nasal spray 07/20/19 21 Active furosemide (Lasix) 20 MG tablet As needed 07/01/19 17 Active Gvoke HypoPen 2-Pack 1 MG/0.2ML solution auto-injector INJECT 1 MG SUBCUTANEOUSLY ONCE DIRECTED 10/17/19 21 Active hyoscyamine (Levsin) 0.125 MG SL tablet DISSOLVE ONE TABLET UNDER THE TONGUE EVERY 6 HOURS NEEDED 02/20/20 21 Active omeprazole (PriLOSEC) [address] capsule As needed 03/10/19 17 Active phentermine (Adipex-P) 37.5 MG tablet 06/13/19 21 Active potassium chloride ER (Micro-K) 10 MEQ ER capsule Take with lasix As needed 07/01/19 17 Active semaglutide (Ozempic, 0.25 or 0.5 MG/DOSE,) 2 MG/1.5ML solution pen-injector inj. pen 09/27/19 21 Active metFORMIN (Glucophage) 500 MG tablet Take 0.5 tablets (250 mg) by mouth Daily. Active prazosin (Minipress) 1 MG capsule Take 1 capsule (1 mg) by mouth if needed. Active Nurtec 75 MG tablet dispersible TAKE ONE (1) TABLET BY MOUTH EVERY OTHER DAY Active famotidine (Pepcid) 20 MG tablet Take by mouth 1 (one) time each day. Active nitroglycerin (Nitrostat) 0.4 MG SL tablet if needed. Active azithromycin (Zithromax) 250 MG tablet TAKE 500 MG TODAY (DAY 1), THEN 250 MG FOR FOUR (4) DAYS (DAYS 2-5) 12/22/19 24 Active EPINEPHrine (Epipen) 0.3 MG/0.3ML injection syringe INJECT 0.3 MG (0.3 ML) INTRAMUSCULARLY EVERY FOUR (4) HOURS NEEDED FOR ANAPHYLAXIS 11/04/19 24 Active ipratropium-alb uterol (Duo-Neb) 0.5-2.5 mg/3 mL nebulizer solution THREE (3) ML INHALED FOUR TIMES A DAY NEEDED FOR SHORTNESS OF BREATH OR WHEEZING 11/04/19 24 Active Airsupra 90-80 MCG/ACT aerosol INHALE TWO (2) PUFFS EVERY SIX (6) HOURS NEEDED FOR SHORTNESS OF BREATH OR WHEEZING 01/26/20 24 Active Linzess 290 MCG capsule TAKE 1 CAPSULE BY MOUTH EACH MORNING 02/25/20 24 Active polyethylene glycol (Miralax) 17 g packet Take 17 g by mouth 1 (one) time each day. Active butalbital-acet aminophen-caffe ine 50-325-40 MG tablet TAKE ONE TABLET BY MOUTH AT ONSET of HEADACHE; MAY REPEAT DOSE in 6 hours if needed Active folic acid (Folvite) 1 MG tabletIndicatio ns:Inflammatory arthritis Take 1 tablet by mouth daily. 90 tablet 1 02/08/20 25 026 Active methotrexate 2.5 MG tabletIndicatio ns:Inflammatory arthritis Take 8 tablets (20 mg total) by mouth 1 time per week. Follow directions carefully, and ask to explain any part you do not understand. Take exactly as directed. 32 tablet 4 02/08/20 25 Active methotrexate 2.5 MG tablet TAKE SIX (6) TABLETS BY MOUTH EVERY WEEK 025 Discontin ued(Reord er) folic acid (Folvite) 1 MG tablet Take 1 tablet by mouth daily. 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 25 Myopia of both eyes 06/13/2024 Regular astigmatism of both eyes 06/13/2024 Hx of one miscarriage 10/27/2023 Overview (10/27/2023): 19 weeks old CORIN positive 10/27/2023 Blurring of vision 10/27/2023 Dry eyes 10/27/2023 Non-caseating granuloma 10/27/2023 Cervical lymphadenopathy 10/27/2023 Raynaud's phenomenon without gangrene 10/27/2023 Dry cough 10/27/2023 Scleroderma 10/27/2023 Gastroparesis 10/27/2023 Hypoglycemia 10/27/2023 Bloody discharge from nipple 03/03/2023 Inconclusive mammogram 10/08/2022 Overview (05/07/2023): denses breasts; calcifications UOQ left breast and approx 2cm mass lower inner aspect left breast-previous bx in this area; dx left mammo and US planned- Blood coagulation disorder 06/18/2022 Cerebrovascular accident 06/17/2022 Overview (05/07/2023): 2005; d/t hormones in presence of clotting disorder Malignant melanoma 12/03/2021 Neuropathy - (NOS) 03/25/2021 Overview (12/08/2021): Regulatory Update December 2021 CVA, old, alterations of sensations 03/25/2021 Inflammatory arthritis 03/25/2021 Asthma, extrinsic 05/04/2017 Encounters Date Type Department Care Team Description 02/07/2025 2:30 PM EST Office Visit [facility] Medicine Specialties [address] [place] [address] Shirley Delgado MD Inflammatory arthritis (Primary Dx); Raynaud's phenomenon without gangrene; Non-caseating granuloma; CORIN positive; Blurring of vision; Hx of one miscarriage; Dry eyes; Cervical lymphadenopathy 02/07/2025 Travel 02/06/2025 Travel from Last 3 Months Immunizations Immunization Administration Dates Next Due DT (pediatric) 12/19/2014 Influenza, injectable, quadrivalent 01/04/2017 Influenza, live, intranasal 12/19/2024, Influenza, live, intranasal, quadrivalent 2022,01/20/2022 Family History Medical History Relation Name Comments Diabetes type II Brother 1 Pa yu Diabetes type II Brother 2 Tito nicholas Heart disease Brother 2 Tito nicholas Arthritis Brother 3 John Cancer Brother 4 Jett Diabetes Brother 5 Rahul COPD Father Juanjo nicholas Cataracts Father Juanjo nicholas Diabetes Father Juanjo nicholas Diabetes type II Father Juanjo nicholas Heart attack Father Juanjo nicholas Heart disease Father Juanjo nicholas Neuropathy Father Juanjo nicholas Stroke Father Juanjo nicholas Alcohol abuse Mother Tea Arthritis Mother Tea Cardiac disorder Mother Tea Cataracts Mother Tea Drug abuse Mother Tea Parkinsonism Mother Tea Cancer Mother's Sister 1 Brianna Cancer Mother's Sister 2 Sayda Alzheimer's disease Paternal Grandmother Mary Dementia Paternal Grandmother Mary Stroke Paternal Grandmother Mary Diabetes type II Sister 1 Diya clifton Diabetes Sister 2 Diya Alcohol abuse Son Jay Relation Name Status Comments Brother 1 Pa warnere Alive Brother 2 Tito nicholas Brother 3 John Alive Brother 4 Jett Alive Brother 5 Rahul Alive Father Juanjo nicholas Mother Tea Mother's Sister 1 Brianna Alive Mother's Sister 2 Sayda Alive Paternal Grandmother Mary Alive Sister 1 Diya clifton Alive Sister 2 Diya Alive Son Jay Alive Social History Tobacco Use Types Packs/Day Years Used Date Smoking Tobacco: Former Cigarettes 0.3 6 Passive Smoke Exposure: Past Smokeless Tobacco: Never Tobacco Cessation:Counseling Given: Not Answered Alcohol Use Standard Drinks/Week Comments Not Currently [...] on file Sexual Orientation Not on file Last Filed Vital Signs Vital Sign Reading [...] Mass Index 32.82 02/07/2025 2:25 PM EST Plan of Treatment Upcoming Encounters Date Type Department Care Team (Late st Contact Info) Description 02/11/2026 2:00 PM EST Office Visit [place] [facility] [address] [place] [address] Shirley Delgado MD [address] [place] [address] Health Maintenance Due Date Last Done Comments [facility]-HIV Screening 1973 [facility]-Infant/Child/Adol SDOH Screenings 1973 [facility]- SDOH Screenings 10/04/1991 [facility]-Adult SDOH Screenings 10/04/1991 [facility]-Hepatitis B Vaccines (1 of 3 - 19+ 3-dose series) 1992 [facility]-Pneumococcal Vaccine: 50+ Years (1 of 2 - PCV) 1992 [facility]-Zoster Vaccines (1 of 2) 1992 [facility]-Pap Smear 1994 [facility]-Cervical Cancer Screening 10/04/2003 [facility]-HPV/Cotest 10/04/2003 CT Colonography 2018 Colonoscopy 2018 FIT-DNA 2018 FIT 2018 FOBT 2018 Sigmoidoscopy 2018 [facility]-Colorectal Cancer Screening 2018 [id number] Vaccine (3 - season) 2024 02/24/2021, 10/16/2020 [facility]-DTaP,Tdap,and Td Vaccines (2 - Tdap) 12/19/2024 12/19/2014 [facility]-Influenza Vaccine (#1) 01/16/202512/19, 12/10/2023, 12/24/2022, Additional history exists [facility]-Breast Cancer Screening 01/11/2026 01/12/2024, 1 03/13/2023 [facility]-Depression Screening 02/07/2026 02/07/2025, 05/2024 [facility]-Diabetes: Hemoglobin A1C Discontinued 12/03/2021, 03/25/2021 [facility]-Hepatitis C Screening Completed 03/02/2024 [facility]-Obesity Intervention Completed 025, 03/02/2024, 03/02/2024, Additional history exists HPV Vaccines Aged Out No longer eligi ble based on patient's age to complete this topic [facility]-HIB Vaccines Aged Out No longer e ligible based on patient's age to complete this topic [facility]-Hepatitis A Vaccines Aged Out No longer eligible based on patient's age to complete this topic [facility]-IPV Vaccines Aged Out No longer e ligible based on patient's age to complete this topic [facility]-Rotavirus Vaccines Aged Out No lo nger eligible based on patient's age to complete this topic Procedures Procedure Name Priority Date/Time Associated Diagnosis Comments HEPATITIS C ANTIBODY W/REFLEX TO HCV QUANT PCR Routine 03/02/2024 9:56 AM EST Inflammatory arthritis POCT GLYCOSYLATED HEMOGLOBIN (HGB A1C) Routine 03/25/2021 2:34 PM EST Glucose intolerance (malabsorption) from Last 3 Months or Most Recently Relevant to Health Maintenance Results * Hepatitis C Antibody (03/02/2024 9:56 AM EST) Pathologist [facility] Hepatitis C Antibody Negative Negative 03/02/2024 11:59 AM EST [facility] Blood Venous blood specimen / Unknown Venipuncture / Unknown 03/02/2024 9:56 AM EST 03/02/2024 9:56 AM EST us Shirley Delgado MD LAB BLOOD ORDERABLES Final Re sult [facility] [address] [place] [address] * POCT glycosylated hemoglobin (Hb A1C) docked device (03/25/2021 2:34 PM EST) Pathologist [facility] POCT Hemoglobin A1C 5.0 4.4 - 6.6 % nScaled LAB Kit Lot Number n/a [facility] Kit Expiration Date n/a nScaled LAB Blood Venous blood specimen / Unknown 03/25/2021 2:34 PM EST Juvenal Zuleta MD POINT OF CARE TEST ENTER/EDIT ORDERABLES Final Result [facility] [address] [place] [address] from Last 3 Months or Most Recently Relevant to Health Maintenance Insurance [facility] [employer] Care Teams Croze Cutter Helper Relationship Specialty Start Date End Date Adelfo Alberto MD [facility] [place] [address] PCP - General 10/16/24
--- OUTSIDE RECORDS SUMMARY | 2025-02-12 17:31 | XMS_ITS | Encounter Summary ---
Author Organization [facility] Address [address] [place] [address] Care Team Providers Care Ironworker Apprentice Shop Name Role Phone Colin Pedraza MD Primary Care Provider [phone] Adelfo Alberto MD Primary Care Provider [phone] Reason for Referral * Consultation (Routine) - Closed Specialty Diagnoses / Procedures Referred By Sandoval t Referred To Contact Endocrinology Diagnoses Glucose intolerance (malabsorption) Bruce Ovalle MD [address] [place] [address] Phone: tel: fax: [facility] Endocrinology [address] [place] [phone] Phone: tel: fax: Referral ID Status Reason Start Date Expiration Date V isits Requested Visits Authorized [id number] Closed Specialty Services Required 01/27/2021 07/29/2022 1 1 Encounter Details Date Type Department Care Team (Late st Contact Info) Description 01/27/2021 [facility] [address] [place] [address] Bruce Ovalle MD [address] [place] [address] Glucose intolerance (malabsorption) (Primary Dx) Social History Tobacco Use Types Packs/Day Years Used Date Smoking Tobacco: Former Comments Unknown Sex and Gender Information Value Date Recorded Sex Assigned at Not on file Legal Sex Female 7:33 PM EDT Gender Identity Not on file Sexual Orientation Not on file documented as of this encounter Plan of Treatment Upcoming Encounters Date Type Department Care Team (Late st Contact Info) Description 02/11/2026 2:00 PM EST Office Visit [place] [facility] [address] [place] [address] Shirley Delgado MD [address] [place] [phone] Scheduled Referrals Name Type Priority Associated Diagnoses Order Schedule Ambulatory referral to Endocrinology Outpatient Referral Routine Glucose intolerance (malabsorption) Expected: 01/27/2021 (Approximate), Expires: 04/29/2021 documented as of this encounter Visit Diagnoses Diagnosis 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
--- OUTSIDE RECORDS SUMMARY | 2025-02-12 17:31 | XMS_ITS ---
Author Organization Unknown ENCOUNTERS Encounter Performer Location Date Diagnosis Diagnosis Status Pre Admit [facility] [address] [place] [address] [phone] Emergency [facility] [address] [place] [address] [phone] [facility] [address] [place] [address] [phone] [facility] *Note: Encounters from your own facility or health system may be excluded. Allergies, Adverse Reactions, Alerts Allergen Type Severity Identification Date cephalexin drug allergy 2 20210418 sulfamethoxazole drug allergy 2 [id number] ciprofloxacin drug allergy 4 [id number] trimethoprim drug allergy 2 [id number] pineapple drug allergy 1 [id number] Penicillins drug allergy 2 [id number] erythromycin base drug allergy 4 [id number] Medications Name Date Quantity Days Supplied GPI Number
--- OUTSIDE RECORDS SUMMARY | 2025-02-12 17:32 | XMS_ITS | Encounter Summary ---
Author Organization [facility] Address [address] [place] [address] Care Team Providers Care Bullion Weigher Name Role Phone Adelfo Alberto MD Primary Care Provider Encounter Details Date Type Department Care Team (Latest Contact Info) Description 02/06/2025 Travel Social History Tobacco Use Types Packs/Day [...] Description 02/11/2026 2:00 PM EST Office Visit [place] [facility] [address] [place] [address] Shirley Delgado MD [address] [place] [address] documented as of this encounter Visit Diagnoses Not on filedocumented in this encounter Additional Health Concerns Assessment Noted Time A fall risk assessment has been complete d for the patient 03/02/2024 8:56 AM EST A Body Mass Index follow-up plan has been documented for the patient 03/02/2024 10:00 AM EST documented as of this encounter Care Teams Bullion Weigher Relationship Specialty Start Date End Date Adelfo Alberto MD [address] [place] [address] PCP - General 10/16/24 documented as of this encounter
== END 2025-02-12 23:59 | disposition home or self-care (01) ==
LOC: RT 17:28
PROVIDERS: PCP Family Medicine; Visit Provider Physician Assistant
DX: I48.0 Paroxysmal atrial fibrillation (principal)
CPT/HCPCS: 93270